=== PATIENT | female | born 1985 | race Caucasian/White ===

== ENCOUNTER → 2017-10-09 10:46 | Outpatient (CLI) | payer BC, SELFPAY ==
--- NOTE | 2017-10-09 11:04 | FL_ITS ---
EXAM: Barium swallow/esophagram. INDICATION: ITS.REASON: dysphagia ORDERING PHYSICIAN: Steven Smith MD PATIENT AGE: 32 years TECHNIQUE: In the upright position the patient was observed to swallow barium in both the AP and lateral view. The cervical esophagus was examined under fluoroscopy with images obtained. The patient was then placed prone in the right anterior oblique position and was observed to swallow barium with Valsalva technique . FLUOROSCOPY TIME: 61 seconds FINDINGS: There was no evidence of aspiration. There was normal peristalsis. No filling defects or mucosal abnormalities. No masses or strictures. IMPRESSION: Negative barium swallow.
== END ==
PROVIDERS: Visit Provider Surgery
DX: R13.10 Dysphagia, unspecified (principal)
CPT/HCPCS: 74220

== ENCOUNTER → 2017-11-14 13:09 | Outpatient (CLI) | payer BC, SELFPAY ==
--- NOTE | 2017-11-14 13:16 | NVE_ITS ---
Venous Exam Indications: 729.5 Pain in limb. IMPRESSIONS 1. There is no evidence of significant Reflux. 2. No evidence of deep or superficial vein thrombosis involving the right lower extremity Right lower extremity venous duplex evaluation. Doppler flow study including spectral analysis, color and summers scale imaging. Location: Vascular laboratory. Patient status: Outpatient. Tables: Venous flow and imaging: + +-------+ + Location Overall Flow properties + +-------+ + Right common femoral Patent Normal phasicity; spontaneous; normal augmentation; compressible + +-------+ + Right saphenofemoral junction Patent Compressible + +-------+ + Right profunda femoral Patent Compressible + +-------+ + Right femoral Patent Normal phasicity; spontaneous; normal augmentation; compressible + +-------+ + Right greater saphenous Patent Normal phasicity; spontaneous; normal augmentation; compressible + +-------+ + Right popliteal Patent Normal phasicity; spontaneous; normal augmentation; compressible + +-------+ + Right posterior tibial Patent Compressible + +-------+ + Right peroneal Patent Compressible + +-------+ + Right gastrocnemius Patent Compressible + +-------+ + Right soleal Patent Compressible + +-------+ + (Report amended ) Electronically signed by: Jarod Cid [id number]
== END ==
PROVIDERS: PCP Nurse Practitioner Family; Visit Provider Nurse Practitioner Family
DX: M79.671 Pain in right foot (principal)
CPT/HCPCS: 93971

== ENCOUNTER → 2017-11-20 09:37 | Outpatient (CLI) | payer BC, SELFPAY ==
[2017-11-20 14:23] LABS: Basophils # 0.1 K/mm3 (0-0.2); Basophils % 1.2 % (0.1-2.0); Eosinophils # 0.6 K/mm3 (0.0-0.4); Eosinophils % 6.6 % (0.1-12.0); Hematocrit 46.8 % (37.0-47.0); Hemoglobin 14.9 g/dL (12.2-16.2); Lymphocytes # 2.8 K/mm3 (0.7-4.5); Lymphocytes % 33.4 K/mm3 (10-50); Mean Corpuscular HGB Conc 31.8 g/dL (31.8-35.4); Mean Corpuscular Hemoglobin 30.5 pg (27.0-31.2); Mean Corpuscular Volume 96.1 fl (81-99); Mean Platelet Volume 8.9 fl (7.4-10.4); Monocytes # 0.4 K/mm3 (0.1-1.0); Monocytes % 4.5 % (1.7-9.3); Neutrophils # 4.5 K/mm3 (1.8-7.8); Neutrophils % 54.4 % (37.0-80.0); Platelet Count 292 K/mm3 (142-424); Red Blood Count 4.87 M/mm3 (4.20-5.40); Red Cell Distribution Width 12.1 % (11.5-17.5); White Blood Count 8.3 K/mm3 (4.8-10.8)
[2017-11-20 14:51] LABS: Alanine Aminotransferase 32 U/L (12-78); Albumin Level 3.9 gm/dL (3.4-5.0); Albumin/Globulin Ratio 1.4 (1.1-1.8); Alkaline Phosphatase 111 U/L (46-116); Anion Gap 12.4 mEq/L (5-15); Aspartate Amino Transferase 16 U/L (15-37); Bilirubin,Total 0.6 mg/dL (0.2-1.0); Blood Urea Nitrogen 8 mg/dL (7-18); Calcium 8.8 mg/dL (8.5-10.1); Carbon Dioxide 29 mmol/L (21.0-32.0); Chloride 105 mmol/L (98-107); Chol/HDL Ratio 2.2 (1-3.5); Cholesterol 132 mg/dL (140-200); Estimated Glomerular Filt Rate 97 ml/min (>60); GFR (African American) 117 ML/MIN (>60); Globulin 2.8 gm/dl (1.3-3.2); Glucose 79 mg/dL (74-106); HDL Cholesterol 60 mg/dL (29-89); LDL Cholesterol 62 mg/dL (0-130); Magnesium 1.7 mg/dL (1.4-2.2); Potassium 4.4 mmoL/L (3.5-5.1); Sodium 142 mmol/L (136-145); Thyroid Stimulating Hormone 0.88 uIU/ml (0.358-3.740); Total Protein,Serum 6.7 gm/dL (6.4-8.2); Triglycerides 49 mg/dL (30-200); VLDL Cholesterol 10 mg/dL (0-40)
[2017-11-20 14:58] LABS: Hemoglobin A1C 4.7 % (0.0-7.0)
== END ==
PROVIDERS: PCP Nurse Practitioner Family; Visit Provider Nurse Practitioner Family
DX: R10.31 Right lower quadrant pain (principal); Z79.899 Other long term (current) drug therapy; Z13.220 Encounter for screening for lipoid disorders
CPT/HCPCS: 36415; 80053; 80061; 83036; 83735; 84443; 85025

== ENCOUNTER → 2018-12-03 14:30 | Outpatient (CLI) | payer BC, SELFPAY ==
--- NOTE | 2018-12-03 14:35 | XR_ITS ---
XR knee RT 3V HISTORY: ITS.REASON: RT KNEE PAIN ORDERING PHYSICIAN: Taylor Webb APRN PATIENT AGE: 33 years COMPARISON: None FINDINGS: No fracture or dislocation. No lytic or blastic change. Normal mineralization. There is minimal osteoarthritic change of the medial compartment with slight decrease in the joint space and minimal osteophyte formation at the distal femur medially. IMPRESSION: Minimal osteoarthritis
== END ==
PROVIDERS: PCP Nurse Practitioner Family; Visit Provider Nurse Practitioner Family
DX: M25.561 Pain in right knee (principal)
CPT/HCPCS: 73562

== ENCOUNTER → 2019-04-12 17:05 | Outpatient (CLI) | payer BC, SELFPAY ==
[2019-04-12 17:31] LABS: Basophils # 0.1 K/mm3 (0-0.2); Eosinophils # 0.2 K/mm3 (0.0-0.4); Eosinophils % 2.3 % (0.1-12.0); Hemoglobin 15.5 g/dL (12.2-16.2); Lymphocytes % 41.4 % (10-50); Mean Corpuscular HGB Conc 33.7 g/dL (31.8-35.4); Mean Corpuscular Hemoglobin 31.9 pg (27.0-31.2); Mean Corpuscular Volume 94.6 fl (81-99); Mean Platelet Volume 9.6 fl (7.4-10.4); Monocytes # 0.5 K/mm3 (0.1-1.0); Monocytes % 5.1 % (1.7-9.3); Neutrophils # 4.9 K/mm3 (1.8-7.8); Neutrophils % 50.1 % (37.0-80.0); Platelet Count 351 K/mm3 (142-424); Red Blood Count 4.86 M/mm3 (4.20-5.40); White Blood Count 9.7 K/mm3 (4.8-10.8)
[2019-04-12 18:32] LABS: Alanine Aminotransferase 23 U/L (12-78); Albumin Level 4.4 gm/dL (3.4-5.0); Albumin/Globulin Ratio 1.5 (1.1-1.8); Alkaline Phosphatase 103 U/L (46-116); Anion Gap 11.8 mEq/L (5-15); Aspartate Amino Transferase 16 U/L (15-37); Bilirubin,Total 0.6 mg/dL (0.2-1.0); Blood Urea Nitrogen 12 mg/dL (7-18); Calcium 9.5 mg/dL (8.5-10.1); Carbon Dioxide 26 mmol/L (21.0-32.0); Chloride 101 mmol/L (98-107); Chol/HDL Ratio 2.5 (1-3.5); Cholesterol 175 mg/dL (140-200); Creatinine,Serum 0.59 mg/dL (0.55-1.02); Estimated Glomerular Filt Rate 117 ml/min (>60); Free T4 (Free Thyroxine) 0.96 ng/dl (0.76-1.46); GFR (African American) 141 ML/MIN (>60); Globulin 2.9 gm/dl (1.3-3.2); Glucose 88 mg/dL (74-106); HDL Cholesterol 71 mg/dL (29-89); LDL Cholesterol 91 mg/dL (0-130); Potassium 3.8 mmoL/L (3.5-5.1); Sodium 135 mmol/L (136-145); Thyroid Stimulating Hormone 1.11 uIU/ml (0.358-3.740); Total Protein,Serum 7.3 gm/dL (6.4-8.2); Triglycerides 66 mg/dL (30-200); VLDL Cholesterol 13 mg/dL (0-40)
[2019-04-12 18:38] LABS: C-Reactive Protein > 0.2 mg/dL (0.0-0.9)
[2019-04-12 18:56] LABS: Erythrocyte Sedimentation Rate 6 mm/hr (0-20)
[2019-04-14 15:09] LABS: Hep A Ab, IgM Negative (Negative); Hepatitis B Core Antibody IgM Negative (Negative); Hepatitis B Surface Antigen Negative (Negative)
[2019-04-14 21:50] LABS: Hepatitis C Antibody <0.1 s/co ratio (0.0-0.9); RA Latex Turbid. <10.0 IU/mL (0.0-13.9)
[2019-04-15 13:56] LABS: Vitamin D 25 Hydroxy 22.9 ng/mL (30.0-100.0)
[2019-04-16 14:59] LABS: Antinuclear Antibodies, IFA Positive (.)
== END ==
PROVIDERS: Visit Provider Nurse Practitioner Family
DX: I10 Essential (primary) hypertension (principal); R53.83 Other fatigue; Z29.9 Encounter for prophylactic measures, unspecified; M47.812 Spondylosis without myelopathy or radiculopathy, cervical region; M47.813 Spondylosis without myelopathy or radiculopathy, cervicothoracic region
CPT/HCPCS: 80053; 80061; 80074; 82652; 84439; 84443; 84550; 85025; 85651; 86038; 86140; 86431

== ENCOUNTER → 2019-06-07 08:54 | Outpatient (CLI) | payer BC, SELFPAY ==
--- NOTE | 2019-06-07 | CA_ITS ---
APPROVED REPORT Exam: Exercise Treadmill Technologist: Martha Welsh Ht: 5 ft 7 in Wt: 150 lbs BSA: 1.79 m2 HR: 72 bpm BP: 135/102 mmHg Medical History Medical History: HTN Medications: Propranolol,,,,, Losartan,,,,, ProMETHAZINE,,,,, CyclobenAPRINE,,,,, Omepazole,,,,, HTCZ,,,,, Cardiac Risk Factors: FHX of CAD, HTN Stress Test Details Test: Sylvester HR Resting HR: 66 bpm Max Heart Rate (APMHR): 186 bpm Max HR Achieved: 169 bpm Target HR (85% APMHR): 158 bpm % of APMHR: 90 Recovery HR: 93 bpm BP Resting BP: 135.0/102.0 mmHg Max BP: 163.0/90.0 mmHg Recovery BP: 142.0/93.0 mmHg ECG Resting ECG: NORMAL SINUS RHYTHM Recovery ST Deviation: 2 mm Clinical Reason for Termination: Dyspnea Exercise duration: 10:00 min Highest Stage Achieved: Exercise capacity: 12.8 METs Stress ECG Conclusion MAX HEART RATE 169 BPM. METS = 12.8. TEST STOPPED DUE TO SOA. NO CHEST PAIN. NO ARRHYTHMIAS. <1.5MM ST SEGMENT CHANGES. NORMAL TEST Test Summary REST . . . . . . . Standing REST . . . . . . . Sitting REST 04:29 0.0 0.0 66 . 135/102 . . Stage 1 01:00 10.0 1.7 108 . . . . Stage 1 02:00 10.0 1.7 109 . . . . Stage 1 03:00 10.0 1.7 109 . 146/109 . . Stage 2 01:00 12.0 2.5 116 . . . . Stage 2 02:00 12.0 2.5 122 . . . . Stage 2 03:00 12.0 2.5 120 . . . . Stage 3 01:00 14.0 3.4 140 . 152/109 . . Stage 3 02:00 14.0 3.4 145 . 152/109 . . Stage 3 03:00 14.0 3.4 150 . 154/109 . . Stage 4 01:00 16.0 4.2 167 . . . Stop exercise at 10:00 RECOVERY 01:00 0.0 0.0 140 . . . . RECOVERY 02:00 0.0 0.0 119 . . . . RECOVERY 03:00 0.0 0.0 75 . . . . RECOVERY 04:00 0.0 0.0 70 . . . . RECOVERY 05:00 0.0 0.0 84 . 163/ 90 . . RECOVERY 05:16 0.0 0.0 91 . 135/ 89 . . Electronically signed by : Kang Humphries, 06/07/2019 14:54:09
--- NOTE | 2019-06-07 08:54 | CA_ITS ---
APPROVED REPORT EXAM: Comprehensive 2D, Doppler, and color-flow Echocardiogram [employer] Teacher: Bhavana Acharya RDCS Ht: 5 ft 7 in Wt: 160lbs BSA: 1.84 BP: 160/111 mmHg Indications: Chest Pain, Shortness of Breath 2D Dimensions LVOT 2.02 cm (M/F) 1.5-2.5 M-Mode Dimensions RVDd 3.02 cm (0.9-2.6) LVDd 4.13 cm (3.5-5.7) LVDs 2.82 cm (3.5-5.7) IVSd 0.80 cm (0.6-1.1) PWd 0.87 cm (0.6-1.1) EF (Teich) 60.10% FS 31.70% EDV (Teich) 75.50 mL ESV (Teich) 30.10 mL Left Ventricle Left atrium is normal size, left ventricle is normal size, there is no concentric left ventricular hypertrophy, visually estimated ejection fraction 55% with no regional wall motion abnormality, diastolic parameters are within normal range Right Ventricle Right atrium right ventricular normal size and contractility. Aortic Valve Aortic valve is grossly normal, there is no aortic stenosis aortic insufficiency. Mitral Valve Mitral valve is grossly normal, there is mild mitral regurgitation. Tricuspid Valve Tricuspid valve is grossly normal, there is mild tricuspid regurgitation. Tricuspid regurgitation jet velocity is inadequate for calculation of the right ventricular systolic pressure. Pulmonic Valve Pulmonic valve is poorly visualized. Great Vessels Aortic root is normal size. Pericardium No significant pericardial effusion noted. Conclusion 1. Normal left ventricular size, preserved left ventricular systolic function, visually estimated ejection fraction 55% with no regional wall motion abnormality, diastolic parameters are within normal range. 2. Mild mitral and tricuspid regurgitation. 3. No significant pericardial effusion noted. Electronically signed by : Kang Humphries, 06/07/2019 13:56:12
== END ==
PROVIDERS: PCP Nurse Practitioner Family; Visit Provider Nurse Practitioner Family
DX: I10 Essential (primary) hypertension (principal); R06.00 Dyspnea, unspecified; R07.9 Chest pain, unspecified
CPT/HCPCS: 93017; 93306

== ENCOUNTER → 2019-06-12 13:22 | Outpatient (CLI) | payer BC, SELFPAY ==
--- NOTE | 2019-06-12 13:22 | MR_ITS ---
PROCEDURE: MR CERVICAL SPINE WO CON CLINICAL INDICATION: neck pain Neck pain COMPARISON: No exams were available for comparison TECHNIQUE: Standard multiplanar multiecho sequences are performed without contrast. 3-D MIP and myelographic images are also rendered and reviewed FINDINGS: There is normal alignment. The cranial cervical junction has an unremarkable appearance. C2-C3: Unremarkable. C3-C4: Very minimal central disc protrusion without impingement. C4-C5: Mild degenerative disc disease with minimal bulging disc with mild bilateral foraminal narrowing from uncovertebral hypertrophy. C5-C6: There is a small broad-based left paracentral disc protrusion. This is causing moderate left lateral recess and foraminal narrowing in is causing flattening of the anterior left aspect of the cord. C6-C7: Degenerative disc disease with bulging disc with a small left paracentral extruded disc. There is canal stenosis 8 mm and there is impingement upon the left anterior and lateral aspect of the cord with left lateral recess and foraminal narrowing. Right lateral recess narrowing is also present at this level from minimal right paracentral disc protrusion. The the C7-T1: Unremarkable. T1-T2: Mild degenerative disc disease. There is a small central disc protrusion also present at T3-T4 noted on the edge of the sagittal images. Consider dedicated MRI of the thoracic spine for better delineation. This does appear to be causing some flattening of the cord anteriorly. IMPRESSION: 1. C3-C4: Very minimal central disc protrusion without impingement. 2. C4-C5: Mild degenerative disc disease with minimal bulging disc with mild bilateral foraminal narrowing from uncovertebral hypertrophy. 3. C5-C6: There is a small broad-based left paracentral disc protrusion. This is causing moderate left lateral recess and foraminal narrowing in is causing flattening of the anterior left aspect of the cord. 4. C6-C7: Degenerative disc disease with bulging disc with a small left paracentral extruded disc. There is canal stenosis 8 mm and there is impingement upon the left anterior and lateral aspect of the cord with left lateral recess and foraminal narrowing. Right lateral recess narrowing is also present at this level from minimal right paracentral disc protrusion. 5. There is a small central disc protrusion also present at T3-T4 noted on the edge of the sagittal images. Consider dedicated MRI of the thoracic spine for better delineation. This does appear to be causing some flattening of the cord anteriorly. Dictated by: Jarod Cid MD 06/13/2019 13:34 Electronically signed by Jarod Cid MD in [place] 06/13/2019 13:34
--- NOTE | 2019-06-12 14:25 | US_ITS ---
PROCEDURE: US THYROID CLINICAL INDICATION: enlarged thyroid COMPARISON: No exams were available for comparison FINDINGS: Right lobe: 4.2 x 1.3 x 1.6 cm Left lobe: 4.1 x 1.5 x 1.7 cm Isthmus: Unremarkable Additional findings: Homogeneous echogenicity. No discrete nodule IMPRESSION: Mildly prominent thyroid gland without evidence of nodule Dictated by: Jarod Cid MD 06/13/2019 09:48 Electronically signed by Jarod Cid MD in [place] 06/13/2019 09:48
== END ==
PROVIDERS: PCP Nurse Practitioner Family; Visit Provider Nurse Practitioner Family
DX: M47.812 Spondylosis without myelopathy or radiculopathy, cervical region (principal); R13.10 Dysphagia, unspecified
CPT/HCPCS: 72141; 76376; 76536

== ENCOUNTER → 2019-06-19 14:15 | Outpatient (CLI) | payer BC, SELFPAY ==
[2019-06-19 15:34] LABS: Amphetamine/Metha Screen,Urine Negative ng/mL (<1000); Barbiturates Screen,Urine Negative ng/mL (<200); Benzodiazepines Screen,Urine Negative ng/mL (<200); Cannabinoid Screen,Urine Positive ng/mL (<50); Cocaine Screen,Urine Negative ng/mL (<300); Methadone Screen,Urine Negative ng/mL (<300); Opiate Screen,Urine Negative ng/mL (<300); Phencyclidine Screen,Urine Negative ng/mL (<25)
== END ==
PROVIDERS: Visit Provider Nurse Practitioner Family
DX: M54.9 Dorsalgia, unspecified (principal)
CPT/HCPCS: 80305

== ENCOUNTER → 2019-06-21 09:24 | Outpatient (CLI) | payer BC, SELFPAY ==
[2019-06-21 09:49] LABS: Anion Gap 10.8 mEq/L (5-15); Blood Urea Nitrogen 12 mg/dL (7-18); Calcium 8.8 mg/dL (8.5-10.1); Carbon Dioxide 30 mmol/L (21.0-32.0); Chloride 103 mmol/L (98-107); Creatinine,Serum 0.74 mg/dL (0.55-1.02); Estimated Glomerular Filt Rate 90 ml/min (>60); GFR (African American) 109 ML/MIN (>60); Glucose 86 mg/dL (74-106); Potassium 3.8 mmoL/L (3.5-5.1); Sodium 140 mmol/L (136-145)
== END ==
PROVIDERS: Visit Provider Internal Medicine Cardiovascular Disease
DX: R07.9 Chest pain, unspecified (principal); R06.00 Dyspnea, unspecified; I10 Essential (primary) hypertension
CPT/HCPCS: 36415; 80048

== ENCOUNTER → 2019-07-01 15:15 | Outpatient (CLI) | payer BC, SELFPAY ==
[2019-07-01 17:39] LABS: Calcium 9.3 mg/dL (8.5-10.1); Free T4 (Free Thyroxine) 0.95 ng/dl (0.76-1.46); Thyroid Stimulating Hormone 1.43 uIU/ml (0.358-3.740)
[2019-07-03 11:58] LABS: Thyroid Peroxidase Antibodies 25 IU/mL (0-34)
[2019-07-05 16:56] LABS: Calcitonin <2.0 pg/mL (0.0-5.0); Thyroid Stimulating Immunoglob <0.10 IU/L (0.00-0.55)
== END ==
PROVIDERS: Visit Provider Otolaryngology
DX: E06.9 Thyroiditis, unspecified (principal)
CPT/HCPCS: 36415; 82308; 82310; 84439; 84443; 84445; 86376

== ENCOUNTER → 2019-07-18 13:24 | Outpatient (POV) | payer BC, SELFPAY | PROVIDERS: PCP Nurse Practitioner Family; Visit Provider Neurological Surgery | DX: Z00.00 Encounter for general adult medical examination without abnormal findings (principal) ==

== ENCOUNTER → 2019-10-21 10:34 | Outpatient (CLI) | payer BC, SELFPAY ==
[2019-10-21 11:02] LABS: Basophils # 0.2 K/mm3 (0-0.2); Basophils % 1.6 % (0.1-2.0); Eosinophils # 0.6 K/mm3 (0.0-0.4); Eosinophils % 4.5 % (0.1-12.0); Hematocrit 44.1 % (37.0-47.0); Hemoglobin 15.1 g/dL (12.2-16.2); Lymphocytes # 4.8 K/mm3 (0.7-4.5); Lymphocytes % 35.7 % (10-50); Mean Corpuscular HGB Conc 34.3 g/dL (31.8-35.4); Mean Corpuscular Hemoglobin 33.7 pg (27.0-31.2); Mean Corpuscular Volume 98.3 fl (81-99); Mean Platelet Volume 8.1 fl (7.4-10.4); Monocytes # 0.8 K/mm3 (0.1-1.0); Monocytes % 6.1 % (1.7-9.3); Neutrophils % 52.1 % (37.0-80.0); Platelet Count 285 K/mm3 (142-424); Red Blood Count 4.49 M/mm3 (4.20-5.40); White Blood Count 13.3 K/mm3 (4.8-10.8)
[2019-10-21 11:10] LABS: Urine Pregnancy, HCG Qual. Negative (Negative)
[2019-10-21 13:14] LABS: Chloride 100 mmol/L (98-107); Potassium 4.2 mmoL/L (3.5-5.1); Sodium 134 mmol/L (136-145)
[2019-10-21 13:17] LABS: Blood Urea Nitrogen 11 mg/dl (7-17); Estimated Glomerular Filt Rate 114 ml/min (>60); GFR (African American) 138 ML/MIN (>60)
[2019-10-21 13:18] LABS: Anion Gap 9.2 mEq/L (5-15); Carbon Dioxide 29 mmol/L (22.0-30.0)
[2019-10-21 13:24] LABS: Calcium 9.7 mg/dl (8.4-10.2)
[2019-10-21 13:47] LABS: Glucose 81 mg/dl (74-100)
[2019-10-21 14:12] LABS: Coronavirus 19 IgG Antibody Negative (Negative); Coronavirus 19 IgM Antibody Negative (Negative)
== END ==
PROVIDERS: Visit Provider Otolaryngology
DX: Z01.818 Encounter for other preprocedural examination (principal); J39.2 Other diseases of pharynx
CPT/HCPCS: 36415; 80048; 81025; 85025; 86328

== ENCOUNTER 2019-10-22 07:36 | Day surgery (SDC) | payer BC, SELFPAY ==
--- NOTE | 2019-10-17 15:16 | SUR.PREOP ---
10/17/2019 @ 1518--PHONE CALL MADE TO PATIENT. PATIENT UNDERSTANDS THAT LAB WORK AND COVID TESTING NEEDS TO BE COMPLETED BEFORE 10 AM. PATIENT UNDERSTANDS IF LAB WORK AND COVID-19 TESTS ARE NOT COMPLETED BY 12PM ON THAT DATE, THE SURGERY SCHEDULED WILL BE CANCELLED AND RESCHEDULED FOR ANOTHER TIME.
[2019-10-22] VITALS (12 sets, daily range): BP systolic 91–120; BP diastolic 59–77; PULSE 54–76; RESP 12–19; TEMP 36.2–36.7; O2SAT 97–99; BMI 24.9
--- NOTE | 2019-10-22 07:55 | ECG_ITS ---
APPROVED REPORT Exam: Resting ECG HR:48 bpm ECG Measurements Heart Rate 48 AXES TX 142 P 41 QRSd 84 QRS 73 QT 470 T 51 QTc 419 <Conclusion> Marked sinus bradycardia Abnormal ECG Electronically signed by : Stewart Moise, 10/22/2019 16:24:47
--- NOTE | 2019-10-22 09:09 | P.PN_ITS ---
[facility] [place] Anesthesia Checklist - Patient Identification Patient Identification: Arm Band, Verbal (Name & ) - Structural Data Admitted From: Home Planned Operative Procedure/s: laryngoscopy Consent for Planned Operative Procedure(s) Verified: Yes Verified Documents: History and Physical - NPO Status Verified Time NPO: 00:00 - Additional verifications Patient : No Anesthesia Reactions: No Hx Blood Transfusions: No Blood Transfusion Reaction: No Cephalosporin Allergy: No Previous Colonoscopy: No - Cardiovascular Assessment Heart Sounds: S1 & S2 Pulse Strength: Baseline Pulse Rhythm: Regular Peripheral Edema: No - Airway Assessment C-Spine Mobility Assessed: Yes TMJ Mobility Assessed: Yes Dentition: Good Dentition - Neurological Assessment Level of Consciousness: Awake, Alert, Appropriate Hx Seizures: No Numbness or tingling in extremities: No - Anesthesia Plan Anesthesia Risk discussed: Yes Anesthesia Plan: Verified ASA Class: II Anesthesia Type: General [facility] [place] History I have reviewed the patient's past medical history: Yes Medical History: Reports:: Gastroesophageal Reflux Disease(GERD), Hypertension Denies:: Cancer, Diabetes Mellitus Type 1, Diabetes Mellitus Type 2, Internal Pacemaker, MRSA, Seizures *Have you ever received a pneumonia vaccine?: No *Have you received a flu vaccine this season?: No Other Medical History: Denies: Blood Transfusion Reaction Anesthesia experience/problems:: none Laterality Cases: Bilateral: Tonsillectomy Other Surgeries: Yes: Sinus Surgery, Other. No: Pacemaker Amputation: No Fractures: No - *Social History Smoking Status: Current every day smoker Tobacco Type: cigarettes # Packs/Day (cigarettes): 1 Alcohol Intake: never Alcohol Intake Frequency:: holidays/special occasions only Substance Use Type: marijuana *Occupational Status:: employed Housing: house Household Members: family *Travel in the last 8 weeks: None Family Hx:: Diabetes, Heart Attack, Cancer, Other
--- NOTE | 2019-10-22 09:54 | P.PN_ITS ---
[facility] Anesthesia Record Part I Intake, IV Amount: 900 Estimated blood loss (mL): 0 Urine output (mL): 0 Blood Pressure: 115/71 SaO2: 98 Pulse Rate: 75 Respiratory Rate: 12 Temperature: 98 F Patient is:: Awake, Stable Stable to PACU at:: 09:50
--- NOTE | 2019-10-23 08:56 | HMH.ANESII ---
[facility] Anesthesia Record Part II Discharge Time: 10:20 Destination: [facility] PACU nurse assessment reviewed?: Yes Patient Condition:: Good Anesthesia Complications:: None Swallowing reflex intact?: Yes Cyanosis?: No Blood Pressure: 111/77 Pulse Rate: 54 Temperature: 97.6 F Mental Status: Alert & Oriented Pain level:: 4 Nausea and/or vomitting:: None Intake, IV Amount: 800
[2019-10-23 08:57] VITALS: BP 111/77; PULSE 54; TEMP 36.4
--- NOTE | 2019-10-24 09:12 | P.OP_ITS ---
Date of procedure: 10/22/19 Pre-op Diagnosis:: 1. Persistent left-sided throat pain 2. Polypoid cystic lesion left vallecula Post-op Diagnosis:: same Procedure performed:: 1. Microlaryngoscopy with biopsy 2. Removal of lump to left vallecula Surgeon:: Sergei Clarke MD PLANT ENGINEERING SUPERVISOR:: Ovi Yin Anesthesia: GETA Estimated blood loss (mL): 1 Operative findings:: same Operative note:: With the patient under general anesthesia, using the SlimLine laryngoscope and the telescope, a microlaryngoscopy was done. The vocal cords were normal. As was the subglottic larynx. The supraglottic larynx had a polypoid cystic lesion in the left vallecula. Using the cup forceps the lesion was removed and submitted. Bleeding was less than 1 cc and stopped with topical epinephrine/cottonoids. The patient tolerated the procedure well and was sent to recovery in good general condition. Condition: stable Disposition: PACU Complications:: none
== END 2019-10-22 11:19 | disposition home or self-care (01) ==
LOC: OR 07:42
PROVIDERS: PCP Nurse Practitioner Family; Visit Provider Otolaryngology
PROC: 0CBS8ZX Excision of Larynx, Via Natural or Artificial Opening Endoscopic, Diagnostic (ICD-10-PCS; CPT 31536; principal; 2019-10-22 09:00)
DX: J38.7 Other diseases of larynx (principal); I10 Essential (primary) hypertension; K21.9 Gastro-esophageal reflux disease without esophagitis; Z72.0 Tobacco use; F12.90 Cannabis use, unspecified, uncomplicated; Z83.3 Family history of diabetes mellitus; Z82.49 Family history of ischemic heart disease and other diseases of the circulatory system; Z84.89 Family history of other specified conditions; Z80.9 Family history of malignant neoplasm, unspecified
CPT/HCPCS: 31536; 93005; 96374; 96375; J2405; J2710

== ENCOUNTER → 2019-10-31 13:03 | Outpatient (CLI) | payer BC, SELFPAY ==
[2019-10-31 13:07] LABS: MANUAL DIFFERENTIAL MANUAL DIFFERENTIAL (MANUAL DIFF)
[2019-10-31 13:21] LABS: Basophils # 0.1 K/mm3 (0-0.2); Basophils % 0.9 % (0.1-2.0); Eosinophils # 0.4 K/mm3 (0.0-0.4); Eosinophils % 3.6 % (0.1-12.0); Hematocrit 42.2 % (37.0-47.0); Hemoglobin 14.1 g/dL (12.2-16.2); Lymphocytes # 4.4 K/mm3 (0.7-4.5); Lymphocytes % 37.8 % (10-50); Mean Corpuscular HGB Conc 33.4 g/dL (31.8-35.4); Mean Corpuscular Hemoglobin 33.3 pg (27.0-31.2); Mean Platelet Volume 7.8 fl (7.4-10.4); Monocytes # 0.8 K/mm3 (0.1-1.0); Neutrophils # 5.9 K/mm3 (1.8-7.8); Neutrophils % 50.8 % (37.0-80.0); Platelet Count 291 K/mm3 (142-424); Red Blood Count 4.23 M/mm3 (4.20-5.40); Red Cell Distribution Width 13.5 % (11.5-17.5); White Blood Count 11.5 K/mm3 (4.8-10.8)
[2019-10-31 14:21] LABS: Erythrocyte Sedimentation Rate 7 mm/hr (0-20)
[2019-10-31 15:47] LABS: Alanine Aminotransferase 44 U/L (12-78); Albumin Level 4.1 g/dl (3.5-5.0); Albumin/Globulin Ratio 1.8 (1.1-1.8); Alkaline Phosphatase 78 U/L (38-126); Anion Gap 7.4 mEq/L (5-15); Aspartate Amino Transferase 35 U/L (14-36); Bilirubin,Total 0.2 mg/dl (0.2-1.3); Blood Urea Nitrogen 12 mg/dl (7-17); Carbon Dioxide 28 mmol/L (22.0-30.0); Chloride 103 mmol/L (98-107); Estimated Glomerular Filt Rate 96 ml/min (>60); GFR (African American) 116 ML/MIN (>60); Globulin 2.3 g/dL (1.3-3.2); Glucose 88 mg/dl (74-100); Potassium 4.4 mmoL/L (3.5-5.1); Sodium 134 mmol/L (136-145); Total Protein,Serum 6.4 g/dl (6.3-8.2)
[2019-10-31 15:51] LABS: Anisocytosis 1+; Eosinophils % 2 % (0-3); Lymphocytes % 37 % (10-50); Macrocytosis 1+; Monocytes % 6 % (2-9); Neutrophils % 52 % (42-76); Platelet Estimate Normal; Total Cells Counted 100
== END ==
PROVIDERS: Visit Provider Otolaryngology
DX: J39.2 Other diseases of pharynx (principal)
CPT/HCPCS: 36415; 80053; 85007; 85014; 85018; 85048; 85049; 85651

== ENCOUNTER → 2019-12-27 17:08 | Outpatient (CLI) | payer BC, SELFPAY ==
[2019-12-27 17:27] LABS: Basophils # 0.1 K/mm3 (0-0.2); Eosinophils # 0.5 K/mm3 (0.0-0.4); Eosinophils % 4.7 % (0.1-12.0); Hematocrit 47.3 % (37.0-47.0); Hemoglobin 16.2 g/dL (12.2-16.2); Lymphocytes # 3.4 K/mm3 (0.7-4.5); Lymphocytes % 35.3 % (10-50); Mean Corpuscular HGB Conc 34.3 g/dL (31.8-35.4); Mean Corpuscular Hemoglobin 33.8 pg (27.0-31.2); Mean Corpuscular Volume 98.6 fl (81-99); Mean Platelet Volume 9.3 fl (7.4-10.4); Monocytes # 0.6 K/mm3 (0.1-1.0); Monocytes % 5.9 % (1.7-9.3); Neutrophils # 5.1 K/mm3 (1.8-7.8); Neutrophils % 53.1 % (37.0-80.0); Platelet Count 278 K/mm3 (142-424); Red Cell Distribution Width 12.4 % (11.5-17.5); White Blood Count 9.6 K/mm3 (4.8-10.8)
[2019-12-27 17:44] LABS: Chloride 100 mmol/L (98-107); Potassium 3.9 mmoL/L (3.5-5.1); Sodium 138 mmol/L (136-145)
[2019-12-27 17:47] LABS: Alanine Aminotransferase 32 U/L (12-78); Albumin Level 4.6 g/dl (3.5-5.0); Albumin/Globulin Ratio 1.9 (1.1-1.8); Alkaline Phosphatase 91 U/L (38-126); Anion Gap 13.9 mEq/L (5-15); Aspartate Amino Transferase 27 U/L (14-36); Bilirubin,Total 0.7 mg/dl (0.2-1.3); Blood Urea Nitrogen 9 mg/dl (7-17); Carbon Dioxide 28 mmol/L (22.0-30.0); Cholesterol 183 mg/dl (140-200); Estimated Glomerular Filt Rate 96 ml/min (>60); GFR (African American) 116 ML/MIN (>60); Globulin 2.4 g/dL (1.3-3.2); Triglycerides 341 mg/dl (30-150); VLDL Cholesterol 68 mg/dL (0-40)
[2019-12-27 17:48] LABS: Calcium 10.1 mg/dl (8.4-10.2); Chol/HDL Ratio 3.3 (1-3.5); Glucose 85 mg/dl (74-100); HDL Cholesterol 56 mg/dl (40-60)
[2019-12-27 17:58] LABS: Direct LDL Cholesterol 99.19 mg/dL (100-129)
[2019-12-27 18:05] LABS: T4 (Thyroxine) 8.1 ug/dl (5.53-11.0)
[2019-12-27 18:18] LABS: Thyroid Stimulating Hormone 1.84 uIU/mL (0.465-4.68)
[2019-12-27 18:54] LABS: 25-OH Vitamin D, Total 24.6 ng/mL (30-100)
== END ==
PROVIDERS: Visit Provider Nurse Practitioner Family
DX: I10 Essential (primary) hypertension (principal); R53.83 Other fatigue; E55.9 Vitamin D deficiency, unspecified
CPT/HCPCS: 80053; 80061; 82306; 84436; 84443; 85025

== ENCOUNTER → 2020-01-03 16:39 | Outpatient (CLI) | payer BC, SELFPAY ==
[2020-01-03 19:40] LABS: Hemoglobin A1C 5.1 % (4.0-6.0)
== END ==
PROVIDERS: Visit Provider Family Medicine
DX: R73.9 Hyperglycemia, unspecified (principal)
CPT/HCPCS: 83036

== ENCOUNTER → 2020-01-22 08:42 | Outpatient (CLI) | payer BC, SELFPAY ==
[2020-01-22 09:11] LABS: Chloride 104 mmol/L (98-107); Sodium 139 mmol/L (136-145)
[2020-01-22 09:12] LABS: Potassium 4.5 mmoL/L (3.5-5.1)
[2020-01-22 09:14] LABS: Anion Gap 11.5 mEq/L (5-15); Blood Urea Nitrogen 10 mg/dl (7-17); Carbon Dioxide 28 mmol/L (22.0-30.0); Estimated Glomerular Filt Rate 114 ml/min (>60); GFR (African American) 138 ML/MIN (>60)
[2020-01-22 09:15] LABS: Calcium 9.7 mg/dl (8.4-10.2); Glucose 81 mg/dl (74-100)
--- NOTE | 2020-01-22 09:15 | CT_ITS ---
PROCEDURE: CT SOFT TISSUE NECK W CON CLINICAL HISTORY: neck/throat pain NECK NA THROAT PAIN, HX OF EPIGLOTTIS POLYPS WITH 3 LARYNGOSCOPES MOST RECENT JULY2019,C/O SORE THROAT ON LEFT SINCE, COMPARISON: No exams were available for comparison TECHNIQUE: Oral Contrast: None IV Contrast: 75 mL Optiray 350 Axial images obtained with sagittal and coronal reformats. All CT scans at the facility use one or more dose reduction, viz: automated exposure control, ma/kV adjustment per patient size (including targeted exams where dose is matched to indication, i.e. head), or iterative reconstruction technique. FINDINGS: The nasopharynx has an unremarkable appearance. There is some mucosal thickening noted on the left posteriorly in the oral pharyngeal region the. This area measures approximately 5 mm. Direct visualization is suggested. No para tonsillar abscess. The epiglottis and glottic region and subglottic area are unremarkable. No obvious thyroid nodule. There are few scattered small lymph nodes in the neck but no dominant adenopathy. The patient has a tongue piercing. Lung apices are clear. There is mild degenerative disc disease at C6-C7 IMPRESSION: 1. There is a small area of focal mucosal thickening involving the left posterior oral pharynx region measuring approximately 5 mm. This could be due to an area of lymphoid hyperplasia. This is just lateral to and slightly inferior to the level of the uvula. Recommend direct visualization as a mucosal lesion is not excluded. 2. Otherwise negative Dictated by: Jarod Cid MD 01/23/2020 08:04 Jarod Cid MD in [place] 01/23/2020 08:04
== END ==
PROVIDERS: Visit Provider Internal Medicine Cardiovascular Disease
DX: R59.0 Localized enlarged lymph nodes (principal); R07.9 Chest pain, unspecified; R06.00 Dyspnea, unspecified; I10 Essential (primary) hypertension; I34.0 Nonrheumatic mitral (valve) insufficiency
CPT/HCPCS: 36415; 70491; 80048; Q9967

== ENCOUNTER → 2020-02-29 10:40 | Outpatient (CLI) | payer BC, SELFPAY ==
--- NOTE | 2020-02-29 10:41 | MR_ITS ---
PROCEDURE: MR THORACIC SPINE WO CON CLINICAL INDICATION: back pain PT STATES HX OF DDD DIAGNOSED ON C-SPINE MRI DONE 06/12/19 HERE. WITH THIS EXAM RECOMMENDED. PT C/O MID BACK PAIN WITH NO TRAUMA OR INJURY. COMPARISON: MR MR CERVICAL SPINE WO CON from 06/12/2019 TECHNIQUE: Routine multiplanar multi echo sequences are performed without gadolinium enhancement. FINDINGS: There is normal alignment. No fracture or dislocation. No bony destructive process. There is mild degenerative disc disease with some decrease in the disc space at T1 to T8. There is also degenerative disc disease at T11-T12. There was a question of a T3-T4 disc herniation on the C-spine images. This however was on the edge of the exam. There is mild degenerative disc disease at this level but no evidence of disc herniation. There is a tiny left paracentral disc protrusion at T4-T5 without impingement. There is degenerative disc disease at T11-T12 with mild bulging disc and a small left paracentral disc herniation without mass effect. There is endplate irregularity at this level Once again noted is a bulging disc with small left paracentral disc protrusion at C6-C7 IMPRESSION: 1. Mild thoracic spondylosis. 2. Degenerative disc disease at T11-T12 with endplate irregularity. There is a small left paracentral disc herniation without mass effect. 3. Bulging disc with small left paracentral disc protrusion at C6-C7 Dictated by: Jarod Cid MD 03/01/2020 10:25 Jarod Cid MD in [place] 03/01/2020 10:25
== END ==
PROVIDERS: PCP Nurse Practitioner Family; Visit Provider Emergency Medicine
DX: M51.36 Other intervertebral disc degeneration, lumbar region (principal)
CPT/HCPCS: 72146

== ENCOUNTER → 2020-07-30 10:14 | Outpatient (POV) | payer BC, SELFPAY ==
[2020-07-30 10:39] VITALS: BP 139/85; PULSE 70; RESP 18; O2SAT 99; BMI 25.0
--- NOTE | 2020-07-30 12:53 | HMH.PMCON ---
Assessment and Plan (1) Degenerative joint disease of cervical spine Status: Chronic Category: Medical Code(s): M47.812 - Spondylosis without myelopathy or radiculopathy, cervical region (2) Cervical radiculopathy Status: Chronic Category: Medical Code(s): M54.12 - Radiculopathy, cervical region - Assessment and plan all Dx Assessment and Plan for all problems:: We will schedule the patient for a cervical epidural steroid injection at C5-C6. She is not on anticoagulation therapy. She and I did discuss possible intrathecal therapy for her chronic cervical spine pain. She is interested. She is willing to undergo injections to see if they are beneficial. If she does not get relief, she does understand we can proceed with possible trial of intrathecal therapy. She also understands she would need to undergo a psychological evaluation. Patient I discussed with her marijuana use she would possibly be a candidate for bupivacaine therapy. Risks and benefits of the injection were explained to the patient in detail and she would like to proceed with the injection. We will see her back after her injection to discuss a further plan of care and reevaluate her symptoms. The patient and I specifically discussed risk factors for COVID19. These risks include, but are not limited to age greater than 60, heart or lung disease, diabetes, immunosuppression, and travel. We also discussed NSAIDs may worsen COVID19 infection or symptoms. Patient should not use NSAIDs to treat COVID19 signs or symptoms. Patient was also informed that any type of corticosteroid of any form (oral or injection) will decrease the patient's immune system response and may increase the likelihood of COVID19 infection [address] symptoms[address]. Blackburn has reviewed this note and agrees with this plan of care. This note was dictated using voice recognition software and make contain errors or omissions. HPI - Data of Consult Patient: new to practice Consult date: 07/30/20 Requesting Physician: Anna Dooley APRN Primary Care Provider: Karla Karimi APRN - Consult Narrative Reason for consult: Neck pain History of present illness: Ms. Dawson is a 35 year old female who presents today for chronic neck pain. Patient did have an ACDF 03/18/2020. Patient says that she has numbness and tingling as well as pain into her left arm and first 3 fingers. She is also having pain in her mid back. Her neck pain radiates into her occipital area and causes her to have frequent headaches. She says that she did have her surgery performed by Dr. Sosa. Following the surgery her pain worsened. She went back to Dr. Sosa, informing him that he did something very wrong . Patient says that Dr. Sosa informed her her pain was not related to the surgery. She says that when she lays flat she has worsening pain that creeps up into her neck. She says that she cries nightly before bed because she knows she is going to have severe pain. She says looking to the left causes her pain to get worse. Patient says that she initially had a surgery for mid scapular pain. She says since the surgery her pain has gotten significantly worse. She does say she is not interested in injective therapy. She is positive for marijuana use. She says that she does not take any other medications. She is interested in implanted devices. She rates her pain a 9 out of 10 today. She has tried and failed physical therapy along with a continued home stretching program and anti-inflammatories. CC: Anna Dooley APRN [facility] History I have reviewed the patient's past medical history: Yes Medical History: Reports:: Gastroesophageal Reflux Disease(GERD), Hypertension Denies:: Cancer, Diabetes Mellitus Type 1, Diabetes Mellitus Type 2, Internal Pacemaker, MRSA, Seizures *Have you ever received a pneumonia vaccine?: Yes *Have you received a flu vaccine this season?: Yes Other Medical History: Reports: Arthritis, Thyr
== END ==
PROVIDERS: PCP Nurse Practitioner Family; Visit Provider Clinical Nurse Specialist Family Health
DX: M47.892 Other spondylosis, cervical region (principal); M54.12 Radiculopathy, cervical region
CPT/HCPCS: 99202; G0463

== ENCOUNTER → 2020-09-24 10:12 | Outpatient (CLI) | payer BC, SELFPAY ==
--- NOTE | 2020-09-24 10:12 | CT_ITS ---
PROCEDURE: CT SOFT TISSUE NECK WO/W CON CLINICAL HISTORY: throat pain Chronic sore throat for years Hoarse feeling Hx of throat surgery X4 for polyps on lt side epiglottis COMPARISON: CT CT SOFT TISSUE NECK W CON from 01/22/2020 TECHNIQUE: Oral Contrast: None IV Contrast: 75 mL Isovue 370 Axial images obtained with sagittal and coronal reformats. All CT scans at the facility use one or more dose reduction, viz: automated exposure control, ma/kV adjustment per patient size (including targeted exams where dose is matched to indication, i.e. head), or iterative reconstruction technique. FINDINGS: Images of the mid and lower head demonstrates a developmental venous anomaly of the left cerebellum with caput medusa sign in the left cerebellum centrally with a draining vein directed toward the petrous area of the dural sinus. This is not significantly changed. The nasopharynx has an unremarkable appearance. There is some mild fullness in the right parapharyngeal region at the level of the uvula and also some minimal nodularity once again noted along the posterior oropharynx on the left. This region however is not distended as before. Direct visualization may provide further evaluation as previously mentioned. The epiglottis and glottic region have an unremarkable appearance. There are few scattered small cervical lymph nodes a small right submandibular node measures 14 by 8 mm previously 9 by 6 mm. The thyroid gland has an unremarkable appearance. No acute finding in the lung apices. Postsurgical changes with metallic artifact at C6-C7. IMPRESSION: 1. 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 MRI of the brain without and with contrast may further characterize and evaluate for possible additional abnormalities. 2. Mild fullness in the right parapharyngeal region and left posterior oropharynx which may only be related to nondistention. Direct visualization may confirm and to exclude mucosal lesions. 3. Scattered small cervical lymph nodes. A right submandibular node is slightly larger. 4. No abscess or other significant anomaly. Dictated by: Jarod Cid MD 09/25/2020 07:27 Jarod Cid MD in [place] 09/25/2020 07:27
== END ==
PROVIDERS: PCP Nurse Practitioner Family; Visit Provider Otolaryngology
DX: R07.0 Pain in throat (principal)
CPT/HCPCS: 70492; Q9967

== ENCOUNTER 2020-10-22 12:01 | Emergency (ER) | payer BC, SELFPAY ==
[2020-10-22 12:03] VITALS: BP 129/70; PULSE 60; RESP 16; TEMP 36.9; O2SAT 100; BMI 25.0
--- NOTE | 2020-10-22 12:17 | HMH.EDUTC ---
[facility] [place] Clinical Impression: Sinusitis Qualifiers: Sinusitis location: unspecified location Chronicity: acute Recurrence: non-recurrent Qualified Code(s): J01.90 - Acute sinusitis, unspecified Disposition: Home, Self-Care Condition on Discharge: Good Instructions: DI for Sinusitis Additional Instructions: Drink plenty of fluids. Take tylenol or ibuprofen for pain or fever. Take the medications as directed. Follow up with your regular doctor. GO TO THE ER FOR ANY WORSENING SYMPTOMS Don't start the oral steroids (prednisone) until tomorrow, since you had the shot here today. The cough medication (promethazine dm) will make you drowsy, so don't drive or operate heavy machinery after taking it. Prescriptions: Promethazine/Dextromethorphan [Promethazine-Dm Syrup] 5 ml PO Q6HP PRN #240 syrup PRN Reason: Cough Transmission Status: Pending to [facility] predniSONE [Deltasone 10mg tablet] 10 mg PO BID 4 Days #8 tab Transmission Status: Pending to [facility] Azithromycin [Z-Willie 250mg Tab*] 250 mg PO UD DOSE PK #6 tab Transmission Status: Pending to [facility] Referrals: Karla Karimi APRN [Primary Care Provider] - Time of Disposition: 12:33 Medical Decision Making - Medical Records Medical records reviewed: No: I reviewed the patient's medical records. - Dewey Inquiry Pt receiving controlled substance: No Vital Signs: 10/22/20 12:03 10/22/20 12:34 Temperature 98.4 F 98.4 F Temperature Source Oral Pulse Rate 63 Pulse Rate [Right] 60 Respiratory Rate 16 16 Blood Pressure 122/74 Blood Pressure [Right Arm] 129/70 Blood Pressure Mean [Right Arm] 89 Blood Pressure Source [Right Arm] Automatic Cuff Blood Pressure Position [Right Arm] Sitting 02 Sat by Pulse Oximetry 100 Oxygen Delivery Method Room Air Orders (Tests/Meds): ED MEDICATIONS Discontinued Medications Generic Name Dose Route Start Last Admin Trade Name Freq PRN Reason Stop Dose Admin Ceftriaxone Sodium 1 gm 10/22/20 12:22 10/22/20 12:31 Ceftriaxone 1gm Vial IM 10/22/20 12:23 1 gm ONCE ONE Administration Protocol Lidocaine HCl 0 ml 10/22/20 12:22 10/22/20 12:31 Lidocaine 1% 5ml Pf Vial IM 10/22/20 12:23 2.5 ml ONCE ONE Administration Methylprednisolone Sodium Succinate 125 mg 10/22/20 12:22 10/22/20 12:31 Methylprednisolone Sod Succ 125mg Vial IM 10/22/20 12:23 125 mg ONCE ONE Administration [facility] [place] - General Stated complaint: sinus problem Time Seen by Provider: 10/22/20 12:18 Mode of Arrival: Ambulatory Source of Information: Patient Limitations: No Limitations Description of Symptoms (Recalled from Triage Doc. by RN): pt c/o sinus WARNER, chest congestion, and a productive cough with yellow sputum. pt believes she has bronchitits. HEENT Symptoms (Recalled from RN notes): Yes (sinus pressure) Resp Symptoms (Recalled from RN notes): Yes (chest congestion with productive yellow sputum) Skin Symptoms (Recalled from RN notes): No MS Symptoms (Recalled from RN notes): No Functional Status (Recalled from RN notes): na - History of Present Illness Provider Complaint: She states that for the past 2 days she has had worsening sinus congestion and a cough. She denies any fever. She is having a sore throat also. - Related Data Home Medications Medication Instructions Recorded Confirmed methocarbamol 500 mg tablet 500 mg PO HS 04/20/20 10/01/20 tramadol 50 mg tablet 50 mg PO DAILY 04/20/20 10/01/20 meloxicam 15 mg tablet 15 mg PO tab 08/18/20 10/01/20 simvastatin 10 mg tablet 10 mg PO tab 08/18/20 10/01/20 Previous Rx's Medication Instructions Recorded montelukast 10 mg tablet 10 mg PO DAILY #90 tab 11/08/19 hydrochlorothiazide 12.5 mg tablet 12.5 mg PO DAILY #90 tab 04/13/20 losartan 100 mg tablet 100 mg PO DAILY #30 tab 08/03/20 propranolol 60 mg capsule,24 60 mg PO DAILY #30 cap 08/03/20 hr,extended release
[2020-10-22 12:34] VITALS: BP 122/74; PULSE 63; RESP 16; TEMP 36.9
== END 2020-10-22 12:46 | disposition home or self-care (01) ==
LOC: UTC 12:43
PROVIDERS: Emergency Provider Nurse Practitioner Family; PCP Nurse Practitioner Family
DX: J01.90 Acute sinusitis, unspecified (principal); I10 Essential (primary) hypertension; K21.9 Gastro-esophageal reflux disease without esophagitis; F17.210 Nicotine dependence, cigarettes, uncomplicated; F12.10 Cannabis abuse, uncomplicated; Z79.899 Other long term (current) drug therapy
CPT/HCPCS: 96372; 99202; G0463

== ENCOUNTER 2020-10-23 17:29 | Emergency (ER) | payer OTHER, BC, SELFPAY ==
[2020-10-23 17:31] VITALS: BP 118/78; PULSE 78; RESP 18; TEMP 36.7; O2SAT 100; BMI 27.4
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
[2020-10-23 18:06] LABS: Urine Pregnancy, HCG Qual. Negative (Negative)
[2020-10-23 19:16] VITALS: BP 115/72; PULSE 71; RESP 14; TEMP 36.7; O2SAT 100
== END 2020-10-23 19:20 | disposition home or self-care (01) ==
PROVIDERS: Emergency Provider Family Medicine; PCP Nurse Practitioner Family
DX: M62.838 Other muscle spasm (principal); S16.1XXA Strain of muscle, fascia and tendon at neck level, initial encounter; R51.9 Headache, unspecified; V43.52XA Car driver injured in collision with other type car in traffic accident, initial encounter; Y92.481 Parking lot as the place of occurrence of the external cause
CPT/HCPCS: 70450; 72125; 81025; 96372; 99282

== ENCOUNTER → 2020-11-02 14:52 | Outpatient (CLI) | payer BC, SELFPAY ==
[2020-11-02 17:23] LABS: Blood Urea Nitrogen 6 mg/dl (7-17); Estimated Glomerular Filt Rate 114 ml/min (>60); GFR (African American) 138 ML/MIN (>60)
== END ==
PROVIDERS: Visit Provider Specialist
DX: R51.9 Headache, unspecified (principal)
CPT/HCPCS: 36415; 82565; 84520

== ENCOUNTER → 2020-11-09 10:50 | Outpatient (CLI) | payer BC, SELFPAY ==
--- NOTE | 2020-11-09 10:50 | MR_ITS ---
PROCEDURE: MR HEAD/BRAIN WO/W CON CLINICAL INDICATION: Venous anomaly. Headaches. COMPARISON: CT CT HEAD/BRAIN WO CON from 10/23/2020 TECHNIQUE: Routine multiplanar multi echo sequences are performed without gadolinium enhancement. FINDINGS: There are a few tiny foci of bright signal, one in the left frontal white matter and the other in the left parietal subcortical white matter without diffusion abnormality or abnormal enhancement, most consistent with minimal small vessel ischemic changes. There is no abnormal signal in the brainstem chris or cerebellum. Midline structures including the cavernous sinus regions and pituitary gland are normal. There is normal flow void in vertebral basilar system and internal carotid arteries suggesting patency. Skull base is normal. Minimal fluid in the right mastoid air cells noted. Mild bilateral mucosal thickening in maxillary sinuses and right ethmoid sinuses. No evidence of acute intracranial or subarachnoid hemorrhage. No cerebral edema mass effect or midline shift. Postcontrast images show no pathologic contrast enhancement or abnormally enhancing mass. IMPRESSION: A few tiny foci of bright signal in the left frontal white matter and left parietal subcortical white matter most consistent with minimal small vessel ischemic changes. No diffusion abnormality to suggest acute ischemia or infarction. Minimal fluid in the right mastoid air cells. Mild bilateral mucosal thickening in the maxillary sinuses and right ethmoid sinuses. Post-contrast images show no pathologic contrast enhancement or abnormal enhancing mass. Dictated by: Clovis Butterfield 11/09/2020 14:28 Clovis Butterfield in OV 11/09/2020 14:28
== END ==
PROVIDERS: PCP Nurse Practitioner Family; Visit Provider Specialist
DX: Q27.9 Congenital malformation of peripheral vascular system, unspecified (principal)
CPT/HCPCS: 70553; A9576

== ENCOUNTER 2020-12-01 16:00 | Outpatient (RCR) | payer OTHER, BC, SELFPAY ==
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
== END 2020-12-23 15:00 | disposition home or self-care (01) ==
LOC: PT.CARL 16:00
PROVIDERS: PCP Nurse Practitioner Family; Visit Provider Specialist
DX: M47.812 Spondylosis without myelopathy or radiculopathy, cervical region (principal); M62.838 Other muscle spasm
CPT/HCPCS: 97010; 97014; 97035; 97110; 97140; 97163; G0283

== ENCOUNTER → 2021-06-10 10:01 | Outpatient (CLI) | payer BC, SELFPAY ==
--- NOTE | 2021-06-10 10:02 | CA_ITS ---
APPROVED REPORT EXAM: Comprehensive 2D, Doppler, and color-flow Echocardiogram Supervisor Hydrochloric Area: Rosina Shah, RCS, RVS Ht: 5 ft 4 in Wt: 164lbs BSA: 1.80 BP: 143/86 mmHg Indications: Smoker, Cp, HTN, Mild MR 2D Dimensions IVSd 0.90 cm LA Volume 37.40 mL LVOT 1.72 cm (M/F) 1.5-2.5 LA Volume Index 20.80 mL/m2 (M/F) 16-34 M-Mode Dimensions RVDd 3.42 cm (0.9-2.6) LA Diam 3.13 cm (1.9-4.0) LVDd 3.87 cm (3.5-5.7) Ao Diam 2.79 cm (2.0-3.7) LVDs 2.50 cm (3.5-5.7) IVSd 1.29 cm (0.6-1.1) PWd 0.99 cm (0.6-1.1) EF (Teich) 65.50% EPSs 0.30 cm FS 35.40% EDV (Teich) 64.70 mL TAPSE 2.36 (<1.7) ESV (Teich) 22.30 mL LV Diastology E Decel Time 215.00 (160-240 msec) E/A Ratio 1.97 MED E' 11.60 (< 7 cm/sec) MED A' 7.40 cm/s E'/MED E' Ratio 10.10 (>14) LAT E' 11.50 (<10 cm/sec) LAT A' 7.40 cm/s E/LAT E' Ratio 10.19 (>14) Aortic Valve LVOT Max 109.00 (70-110 cm/s) LVOT VTI 26.19 cm AoV Peak Mansoor. 167.00 (50-130 cm/s) AO Peak GR. 11.20 mmHg AO Mean GR. 5.50 (<5 mmHg) AO VTI 39.80 (18-25 cm) EVERARDO (VTI) 1.53 (2.5-4.5 cm2) Mitral Valve MV A Velocity 60.00 (40-130 cm/s) E/A Ratio 1.97 MV Decel. Time 215.00 (160-240 ms) MV Mean Gr. 1.20 (<2mmHg) Pulmonary Valve PV Peak Velocity 94.00 (50-150 cm/s) Tricuspid Valve TR P. Velocity 231.00 cm/s RAP Estimate 10.00 mmHg RVSP 31.30 mmHg Left Ventricle Left atrium is normal size, left ventricle is normal size, there is no concentric left ventricular hypertrophy, visually estimated ejection fraction 55% with no regional wall motion abnormality, diastolic parameters appears to be normal in the study. Right Ventricle Right atrium and ventricle qualitatively normal size and contractility. Aortic Valve Aortic valve is grossly normal, there is no aortic stenosis or aortic insufficiency. Mitral Valve Mitral valve grossly normal, there is mild mitral regurgitation. Tricuspid Valve Tricuspid valve grossly normal, there is mild tricuspid rotation, calculated right ventricular systolic pressure 31 mmHg. Pulmonic Valve Pulmonic valve is poorly visualized. Great Vessels Aortic root is normal size. Inferior vena cava is normal size with normal inspiratory collapse. Pericardium No significant pericardial effusion noted. Conclusion 1. Normal left ventricular size, normal left ventricular systolic function, visually estimated ejection fraction 55% with no regional wall motion abnormality, diastolic parameters are within normal range. 2. Mild mitral and tricuspid regurgitation, calculated right ventricular systolic pressure is 31 mmHg. 3. No significant pericardial effusion noted. 4. Inferior vena cava is normal size with normal inspiratory collapse. Electronically signed by : Kang Humphries MD 06/11/2021 09:28:52
== END ==
PROVIDERS: PCP Nurse Practitioner Family; Visit Provider Urology
DX: R07.9 Chest pain, unspecified (principal); R06.00 Dyspnea, unspecified; I34.0 Nonrheumatic mitral (valve) insufficiency; I10 Essential (primary) hypertension; R06.83 Snoring; R40.0 Somnolence
CPT/HCPCS: 93306

== ENCOUNTER → 2021-09-07 12:49 | Outpatient (CLI) | payer BC, SELFPAY ==
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
== END ==
PROVIDERS: PCP Nurse Practitioner Family; Referring Provider Nurse Practitioner Family; Visit Provider Neurological Surgery
DX: M54.12 Radiculopathy, cervical region (principal)
CPT/HCPCS: 72141; 76376

== ENCOUNTER → 2022-02-09 10:22 | Outpatient (CLI) | payer BC, SELFPAY ==
[2022-02-09 11:08] LABS: Basophils # 0.2 K/mm3 (0-0.2); Basophils % 2.1 % (0.1-2.0); Eosinophils # 0.2 K/mm3 (0.0-0.4); Eosinophils % 2.5 % (0.1-12.0); Hematocrit 46.6 % (37.0-47.0); Hemoglobin 15.5 g/dL (12.2-16.2); Lymphocytes # 1.7 K/mm3 (0.7-4.5); Lymphocytes % 17.7 % (10-50); Mean Corpuscular HGB Conc 33.3 g/dL (31.8-35.4); Mean Corpuscular Hemoglobin 32.1 pg (27.0-31.2); Mean Corpuscular Volume 96.2 fl (81-99); Mean Platelet Volume 9.2 fl (7.4-10.4); Monocytes # 0.7 K/mm3 (0.1-1.0); Monocytes % 6.9 % (1.7-9.3); Neutrophils # 6.9 K/mm3 (1.8-7.8); Neutrophils % 70.8 % (37.0-80.0); Platelet Count 310 K/mm3 (142-424); Red Blood Count 4.85 M/mm3 (4.20-5.40); Red Cell Distribution Width 12.3 % (11.5-17.5); White Blood Count 9.7 K/mm3 (4.8-10.8)
[2022-02-09 13:11] LABS: Alanine Aminotransferase 42 U/L (12-78); Albumin Level 4.7 g/dl (3.5-5.0); Alkaline Phosphatase 133 U/L (38-126); Anion Gap 14.4 mEq/L (5-15); Aspartate Amino Transferase 42 U/L (14-36); Bilirubin,Direct 0.2 mg/dl (0.0-0.4); Bilirubin,Indirect 0.2 mg/dL (0.0-0.9); Bilirubin,Total 0.4 mg/dl (0.2-1.3); Bilirubin,Unconjugated 0.2 mg/dL (0.0-1.1); Blood Urea Nitrogen 9 mg/dl (7-17); Calcium 9.6 mg/dl (8.4-10.2); Carbon Dioxide 28 mmol/L (22.0-30.0); Chloride 98 mmol/L (98-107); Cholesterol 142 mg/dl (140-200); Estimated Glomerular Filt Rate 95 ml/min (>60); GFR (African American) 115 ML/MIN (>60); Glucose 93 mg/dl (74-100); HDL Cholesterol 47 mg/dl (40-60); Magnesium 1.5 mg/dl (1.6-2.3); Potassium 4.4 mmoL/L (3.5-5.1); Sodium 136 mmol/L (136-145); Total Protein,Serum 7.2 g/dl (6.3-8.2); Triglycerides 165 mg/dl (30-150); VLDL Cholesterol 33 mg/dL (0-40)
[2022-02-09 13:27] LABS: Free T4 (Free Thyroxine) 0.99 ng/dl (0.78-2.19)
[2022-02-09 13:30] LABS: Direct LDL Cholesterol 69.31 mg/dL (100-129)
[2022-02-09 13:42] LABS: Thyroid Stimulating Hormone 2.75 uIU/mL (0.465-4.68)
== END ==
PROVIDERS: PCP Nurse Practitioner Family; Visit Provider Internal Medicine
DX: I10 Essential (primary) hypertension (principal); Z79.899 Other long term (current) drug therapy
CPT/HCPCS: 36415; 80048; 80061; 80076; 83735; 84439; 84443; 85025

== ENCOUNTER → 2022-03-30 14:35 | Outpatient (CLI) | payer BC, SELFPAY ==
[2022-03-30 18:40] LABS: Amphetamine/Metha Screen,Urine Negative ng/ml (<1000)
[2022-03-30 18:41] LABS: Barbiturates Screen,Urine Negative ng/ml (<200)
[2022-03-30 18:42] LABS: Benzodiazepines Screen,Urine Negative ng/ml (<200); Cannabinoid Screen,Urine Positive ng/ml (<50)
[2022-03-30 18:43] LABS: Cocaine Screen,Urine Negative ng/ml (<300)
[2022-03-30 18:44] LABS: Methadone Screen,Urine Negative ng/ml (<300); Opiate Screen,Urine Negative ng/ml (<300)
[2022-03-30 18:45] LABS: Phencyclidine Screen,Urine Negative ng/ml (<25)
== END ==
PROVIDERS: PCP Emergency Medicine; Visit Provider Emergency Medicine
DX: Z79.899 Other long term (current) drug therapy (principal)
CPT/HCPCS: 80305

== ENCOUNTER → 2022-05-03 09:17 | Outpatient (CLI) | payer OTHER, SELFPAY ==
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
== END ==
PROVIDERS: PCP Emergency Medicine; Visit Provider Emergency Medicine
DX: R51.9 Headache, unspecified (principal)
CPT/HCPCS: 70551

== ENCOUNTER → 2022-05-17 12:32 | Outpatient (CLI) | payer BC, SELFPAY | PROVIDERS: PCP Emergency Medicine; Visit Provider Internal Medicine | DX: R00.2 Palpitations (principal); I10 Essential (primary) hypertension; I34.0 Nonrheumatic mitral (valve) insufficiency; I07.1 Rheumatic tricuspid insufficiency | CPT/HCPCS: 93225; 93226 ==

== ENCOUNTER → 2022-05-25 15:08 | Outpatient (CLI) | payer BC, SELFPAY ==
--- NOTE | 2022-05-25 15:09 | CA_ITS ---
APPROVED REPORT EXAM: Comprehensive 2D, Doppler, and color-flow Echocardiogram Private Duty Rn: Bessie Torre CRT Ht: 5 ft 7 in Wt: 162lbs BSA: 1.85 BP: 134/88 mmHg Indications: Rheumatic Fever, Palpitations 2D Dimensions LVOT 1.72 cm (M/F) 1.5-2.5 LA Volume 39.30 mL LA Volume Index 20.80 mL/m2 (M/F) 16-34 M-Mode Dimensions RVDd 3.33 cm (0.9-2.6) LA Diam 2.74 cm (1.9-4.0) LVDd 3.85 cm (3.5-5.7) Ao Diam 3.40 cm (2.0-3.7) LVDs 2.79 cm (3.5-5.7) IVSd 1.33 cm (0.6-1.1) PWd 0.47 cm (0.6-1.1) EF (Teich) 54.10% FS 27.50% EDV (Teich) 63.90 mL TAPSE 2.21 (<1.7) ESV (Teich) 29.30 mL LV Diastology E Decel Time 247.00 (160-240 msec) E/A Ratio 2.21 MED E' 11.50 (< 7 cm/sec) MED A' 6.70 cm/s E'/MED E' Ratio 10.55 (>14) LAT E' 10.90 (<10 cm/sec) LAT A' 7.40 cm/s E/LAT E' Ratio 11.13 (>14) Aortic Valve AO Peak GR. 7.90 mmHg Mitral Valve MV E Max Mansoor. 121.00 (40-130 cm/s) MV A Velocity 55.00 (40-130 cm/s) E/A Ratio 2.21 MV Decel. Time 247.00 (160-240 ms) MV PHT 72.00 ms Tricuspid Valve TR P. Velocity 253.00 cm/s RAP Estimate 10.00 mmHg RVSP 35.70 mmHg Left Ventricle Left atrium is normal size, left ventricle is normal size, estimated ejection fraction 55% with no regional wall motion abnormality, diastolic parameters are within normal range. Right Ventricle Right atrium and right ventricle are normal size and contractility. Aortic Valve Aortic valve is grossly normal, there is no aortic stenosis aortic insufficiency. Mitral Valve Mitral valve grossly normal, there is no mitral stenosis, there is mild mitral regurgitation. Tricuspid Valve Tricuspid valve grossly normal, there is mild tricuspid regurgitation, tricuspid regurgitation jet velocity is inadequate for calculation of the right ventricular systolic pressure. Pulmonic Valve Pulmonic valve is poorly visualized. Great Vessels Aortic root is normal size. Inferior vena cava is normal 7 normal inspiratory collapse. Pericardium No significant pericardial effusion noted. Conclusion 1. Normal left ventricular size, preserved left ventricular systolic function, estimated ejection fraction 55% with no regional wall motion abnormality, diastolic parameters are within normal range. 2. Mild mitral and tricuspid regurgitation. 3. No significant pericardial effusion. 4. Inferior vena cava is normal size with normal inspiratory collapse. Electronically signed by : Kang Humphries MD 05/25/2022 19:54:26
== END ==
PROVIDERS: PCP Emergency Medicine; Visit Provider Internal Medicine
DX: R00.2 Palpitations (principal); I07.1 Rheumatic tricuspid insufficiency; I10 Essential (primary) hypertension; I34.0 Nonrheumatic mitral (valve) insufficiency
CPT/HCPCS: 93306

== ENCOUNTER → 2022-06-24 14:15 | Outpatient (CLI) | payer BC, SELFPAY ==
[2022-06-24 18:44] LABS: Amphetamine/Metha Screen,Urine Negative ng/ml (<1000)
[2022-06-24 18:45] LABS: Barbiturates Screen,Urine Negative ng/ml (<200)
[2022-06-24 18:46] LABS: Benzodiazepines Screen,Urine Negative ng/ml (<200); Cannabinoid Screen,Urine Positive ng/ml (<50)
[2022-06-24 18:47] LABS: Cocaine Screen,Urine Negative ng/ml (<300)
[2022-06-24 18:48] LABS: Methadone Screen,Urine Negative ng/ml (<300); Opiate Screen,Urine Negative ng/ml (<300)
[2022-06-24 18:49] LABS: Phencyclidine Screen,Urine Negative ng/ml (<25)
== END ==
PROVIDERS: PCP Emergency Medicine; Visit Provider Emergency Medicine
DX: Z79.899 Other long term (current) drug therapy (principal)
CPT/HCPCS: 80305

== ENCOUNTER → 2022-11-08 23:22 | Outpatient (CLI) | payer BC, SELFPAY ==
[2022-11-08 19:05] LABS: Benzodiazepines Screen,Urine Negative ng/ml (<200)
[2022-11-08 19:06] LABS: Amphetamine/Metha Screen,Urine Negative ng/ml (<1000); Barbiturates Screen,Urine Negative ng/ml (<200)
[2022-11-08 19:07] LABS: Cannabinoid Screen,Urine Positive ng/ml (<50)
[2022-11-08 19:08] LABS: Cocaine Screen,Urine Negative ng/ml (<300); Methadone Screen,Urine Negative ng/ml (<300)
[2022-11-08 19:09] LABS: Opiate Screen,Urine Negative ng/ml (<300)
[2022-11-08 19:10] LABS: Phencyclidine Screen,Urine Negative ng/ml (<25)
== END ==
PROVIDERS: PCP Emergency Medicine; Visit Provider Emergency Medicine
DX: M47.812 Spondylosis without myelopathy or radiculopathy, cervical region (principal)
CPT/HCPCS: 80305

== ENCOUNTER → 2023-01-13 14:33 | Outpatient (CLI) | payer BC, SELFPAY ==
[2023-01-13 17:15] LABS: Amphetamine/Metha Screen,Urine Negative ng/ml (<1000)
[2023-01-13 17:16] LABS: Barbiturates Screen,Urine Negative ng/ml (<200); Benzodiazepines Screen,Urine Negative ng/ml (<200)
[2023-01-13 17:17] LABS: Cannabinoid Screen,Urine Positive ng/ml (<50)
[2023-01-13 17:18] LABS: Cocaine Screen,Urine Negative ng/ml (<300); Methadone Screen,Urine Negative ng/ml (<300)
[2023-01-13 17:19] LABS: Opiate Screen,Urine Negative ng/ml (<300)
[2023-01-13 17:20] LABS: Phencyclidine Screen,Urine Negative ng/ml (<25)
== END ==
PROVIDERS: PCP Emergency Medicine; Visit Provider Emergency Medicine
DX: M47.812 Spondylosis without myelopathy or radiculopathy, cervical region (principal)
CPT/HCPCS: 80305

== ENCOUNTER 2023-01-23 12:44 | Emergency (ER) | payer BC, SELFPAY ==
[2023-01-23 13:10] VITALS: BP 141/90; PULSE 74; RESP 18; TEMP 37.2; O2SAT 98; BMI 25.7
--- NOTE | 2023-01-23 13:20 | XR_ITS ---
FINAL REPORT CLINICAL HISTORY: F/O LEFT THUMB FINDINGS: LEFT HAND Three views demonstrate no acute fracture or dislocation. The visualized joint spaces are normally aligned. The soft tissues are unremarkable. IMPRESSION: No acute process. Reviewed, Interpreted and Dictated by Bob Springer MD Transcribed by Deepa Khalil Authenticated and [facility]
--- NOTE | 2023-01-23 13:23 | EXP.UTC ---
Discharge Plan Disposition Patient Disposition: Home, Self-Care Condition: Good Prescriptions Prescriptions: New cephalexin 500 mg capsule 500 mg PO QID Qty: 40 0RF mupirocin 2 % ointment 1 applic topical TID 7 Days Qty: 15 0RF No Action methocarbamol 500 mg tablet 500 mg PO BID Qty: 60 0RF varenicline [Chantix Starting Month Box] 0.5 mg (11)- 1 mg (42) tablets,dose pack See Rx Instructions PO PER PKG DIR Qty: 53 0RF Rx Instructions: PO PER PKG DIR oxycodone-acetaminophen [Percocet] 7.5-325 mg tablet 1 tab PO TID Qty: 90 0RF omeprazole 40 mg capsule,delayed release(DR/EC) 40 mg PO DAILY Qty: 90 3RF simvastatin 10 mg tablet 10 mg PO DAILY Qty: 90 3RF propranolol [Inderal LA] 60 mg capsule,extended release 24 hr 60 mg PO DAILY Qty: 90 3RF Referrals Follow up/Referrals: Robson Payton DO [Staff Physician] - See instructions Johnny Scruggs MD [Primary Care Provider] - See instructions Activity Restrictions/Add. Instructions Additional Instructions/Restrictions: Keep the wound clean and dry. Watch the wound for signs of infection, such as redness, swelling, drainage, fever. etc. Take tylenol or ibuprofen for pain. Follow up with orthopedics (Dr. Payton) if you continue to have pain and soreness at the site. His office phone number will be on this paperwork. Please call and get yourself an appointment. GO TO THE ER FOR ANY WORSENING SYMPTOMS OR CONCERNS. Clinical Impressions Clinical Impression: Puncture wound of right thumb Instructions Patient Instructions: DI for Puncture Wound Discharge ED Provider: Clovis Nuñez [facility] [place] HPI General Stated complaint: AO [id number] FO in left thumb Mode of Arrival: Ambulatory Source of Information: Patient Limitations: No Limitations Time Seen by Provider: 01/23/23 13:23 Description of Symptoms (Recalled from Triage Doc. by RN): PATIENT C/O PIECE OF PLEXIGLASS IN LEFT THUMB X 3 DAYS HEENT Symptoms (Recalled from RN notes): No Resp Symptoms (Recalled from RN notes): No Skin Symptoms (Recalled from RN notes): Yes MS Symptoms (Recalled from RN notes): No Functional Status (Recalled from RN notes): WNL History of Present Illness Provider Complaint: She states that she was working with a piece of [employer] 3 days ago when it broke and she received a puncture in the tip of her left thumb from it. Since then it has been very sore. Related Data Previous Rx's Medication Instructions Recorded omeprazole 40 mg capsule,delayed 40 mg PO DAILY #90 caps 03/21/22 release methocarbamol 500 mg tablet 500 mg PO BID #60 tabs 03/30/22 simvastatin 10 mg tablet 10 mg PO DAILY #90 tabs 06/24/22 propranolol 60 mg capsule,24 60 mg PO DAILY #90 caps 07/11/22 hr,extended release (Inderal LA) oxycodone-acetaminophen 7.5 mg-325 1 tab PO TID #90 tabs 01/13/23 mg tablet (Percocet) varenicline 0.5 mg (11)-1 mg (42) See Rx Instructions PO PER PKG DIR 01/13/23 tablets in a dose pack (Chantix #53 tabs Starting Month Box) cephalexin 500 mg capsule 500 mg PO QID #40 caps 01/23/23 mupirocin 2 % topical ointment 1 applic topical TID 7 days #15 01/23/23 grams Allergies Allergy/AdvReac Type Severity Reaction Status Date / Time No Known Allergies Allergy Verified 01/13/23 10:37 Worker's Comp Is this a Worker's Comp case?: No [facility] Disclaimer: The information contained in this section may have been updated after the patient was seen, as this information can be updated by other users. Medical History Cervical nerve root impingement Cervical stenosis of spine Dyspnea Mitral valve dysplasia Palpitations Social History Smoking Status: Current every day smoker tobacco type: cigarettes packs per day: 1 second hand exposure: No alcohol intake: never substance use type: marijuana current occupational status: sueo
[2023-01-23 13:25] VITALS: BP 141/90; PULSE 74; RESP 18; TEMP 37.2; O2SAT 98
== END 2023-01-23 13:50 | disposition home or self-care (01) ==
PROVIDERS: Emergency Provider Nurse Practitioner Family; PCP Emergency Medicine
DX: S61.031A Puncture wound without foreign body of right thumb without damage to nail, initial encounter (principal); F17.210 Nicotine dependence, cigarettes, uncomplicated; W45.8XXA Other foreign body or object entering through skin, initial encounter
CPT/HCPCS: 73130; 99212; 99214; G0463

== ENCOUNTER → 2023-02-02 12:45 | Outpatient (CLI) | payer BC, SELFPAY ==
--- NOTE | 2023-02-02 12:45 | CT_ITS ---
FINAL REPORT TECHNIQUE: Thin section axial CT images were obtained through the neck after intravenous contrast administration. Coronal and sagittal reformats were also obtained. This study was performed with techniques to keep radiation doses as low as reasonably achievable (ALARA). Individualized dose reduction techniques using automated exposure control or adjustment of mA and/or kV according to the patient's size were employed. CLINICAL HISTORY: chronic throat pain, patient states it's on the left below jaw bone, pain since epiglottis surgery in 2019 COMPARISON: 09/24/2020 FINDINGS: The nasopharynx, oropharynx, hypopharynx and larynx are unremarkable. There are multiple small and borderline sized cervical nodes, also noted on the previous CT of the neck and unchanged. The thyroid gland is unremarkable. The visualized sinuses are clear. Postoperative changes are noted in the lower cervical spine. IMPRESSION: Multiple small and borderline sized cervical nodes, unchanged from prior neck CT of 2020. Postoperative change lower cervical spine. Reviewed, Interpreted and Dictated by Todd Menendez III, MD Transcribed by Lois Bryan Authenticated and [facility]
[2023-02-02 13:17] LABS: Blood Urea Nitrogen 9 mg/dl (7-17); Estimated Glomerular Filt Rate 94 ml/min (>60); GFR (African American) 114 ML/MIN (>60)
== END ==
LOC: RAD 12:45
PROVIDERS: PCP Emergency Medicine; Visit Provider Emergency Medicine
DX: R07.0 Pain in throat (principal)
CPT/HCPCS: 36415; 70491; 82565; 84520; Q9967

== ENCOUNTER → 2023-02-06 15:36 | Outpatient (CLI) | payer BC, SELFPAY ==
--- NOTE | 2023-02-06 15:36 | MR_ITS ---
FINAL REPORT CLINICAL HISTORY: back pain. ddd. numbness bilateral legs. FINDINGS: Multiplanar MR imaging of the lumbar spine was performed without contrast. On the sagittal T2-weighted images, disc degeneration is seen at several levels. The vertebral alignment is normal. There is no evidence of fracture. No bony mass is identified. The conus is seen at approximately the L1 level and has an unremarkable appearance. T11-12: Annular disc bulge. T12-L1: No significant central canal stenosis or neuroforaminal narrowing. L1-2: There is no significant canal stenosis or neural foraminal narrowing. L2-3: There is an annular disc bulge without significant canal stenosis or neural foraminal narrowing. L3-4: There is no significant canal stenosis or neural foraminal narrowing. L4-5: There is an annular disc bulge without significant canal stenosis or neural foraminal narrowing. L5-S1: There is an annular disc bulge and small central disc protrusion without significant central canal stenosis or neuroforaminal narrowing. IMPRESSION: Annular disc bulges at multiple levels with small central disc protrusion at L5-S1. No significant central canal stenosis or neuroforaminal narrowing. Reviewed, Interpreted and Dictated by Todd Menendez III, MD Transcribed by Deepa Khalil Authenticated and [facility]
== END ==
LOC: RAD 15:36
PROVIDERS: PCP Emergency Medicine; Visit Provider Emergency Medicine
DX: M54.9 Dorsalgia, unspecified (principal); M54.50 Low back pain, unspecified
CPT/HCPCS: 72148; 76376

== ENCOUNTER → 2023-02-13 14:23 | Outpatient (CLI) | payer BC, SELFPAY ==
[2023-02-13 19:43] LABS: Barbiturates Screen,Urine Negative ng/ml (<200)
[2023-02-13 19:44] LABS: Amphetamine/Metha Screen,Urine Negative ng/ml (<1000)
[2023-02-13 19:46] LABS: Benzodiazepines Screen,Urine Negative ng/ml (<200); Cocaine Screen,Urine Negative ng/ml (<300)
[2023-02-13 19:47] LABS: Cannabinoid Screen,Urine Positive ng/ml (<50)
[2023-02-13 19:48] LABS: Methadone Screen,Urine Negative ng/ml (<300); Phencyclidine Screen,Urine Negative ng/ml (<25)
[2023-02-13 19:49] LABS: Opiate Screen,Urine Negative ng/ml (<300)
== END ==
PROVIDERS: PCP Emergency Medicine; Visit Provider Emergency Medicine
DX: Z79.899 Other long term (current) drug therapy (principal)
CPT/HCPCS: 80305

== ENCOUNTER → 2023-05-18 12:24 | Outpatient (CLI) | payer BC, SELFPAY ==
--- NOTE | 2023-05-18 12:40 | MR_ITS ---
FINAL REPORT CLINICAL HISTORY: CHRONIC VOCAL CORD PAIN, TENDERNESS. COMPARISON: CT of the soft tissues of the neck dated 02/02/2023 FINDINGS: Multiplanar MR imaging of the neck was performed without and with contrast. There is magnetic susceptibility artifact present at the C6-7 level consistent with an anterior interbody fusion at that level. Scattered small bilateral neck nodes are present but without evidence of adenopathy. There is no evidence of mass. The nasopharynx, oropharynx, hypopharynx and larynx have an unremarkable appearance. Specifically, the vocal cords appear unremarkable. The thyroid gland has an unremarkable appearance. IMPRESSION: Magnetic susceptibility artifact at the C6-7 level consistent with a prior interbody fusion at that level. No significant adenopathy is identified, and no focal mass is noted. Specifically the vocal cords appear unremarkable. Reviewed, Interpreted and Dictated by Bob Springer MD Transcribed by Lois Bryan Authenticated and [facility]
[2023-05-18 13:26] LABS: Blood Urea Nitrogen 13 mg/dl (7-17); Estimated Glomerular Filt Rate 94 ml/min (>60); GFR (African American) 113 ML/MIN (>60)
== END ==
PROVIDERS: Nurse Practitioner; PCP Emergency Medicine; Visit Provider Otolaryngology
DX: H92.09 Otalgia, unspecified ear (principal); R09.A2 Foreign body sensation, throat; R68.84 Jaw pain; J38.1 Polyp of vocal cord and larynx; Z72.0 Tobacco use
CPT/HCPCS: 36415; 70543; 82565; 84520; A9576

== ENCOUNTER 2023-06-20 20:51 | Outpatient (CLI) | payer BC, SELFPAY ==
[2023-06-20 19:27] LABS: Amphetamine/Metha Screen,Urine Negative ng/ml (<1000)
[2023-06-20 19:28] LABS: Barbiturates Screen,Urine Negative ng/ml (<200)
[2023-06-20 19:29] LABS: Benzodiazepines Screen,Urine Negative ng/ml (<200)
[2023-06-20 19:30] LABS: Cannabinoid Screen,Urine Positive ng/ml (<50); Cocaine Screen,Urine Negative ng/ml (<300)
[2023-06-20 19:31] LABS: Methadone Screen,Urine Negative ng/ml (<300)
[2023-06-20 19:32] LABS: Opiate Screen,Urine Negative ng/ml (<300); Phencyclidine Screen,Urine Negative ng/ml (<25)
[2023-06-25 13:03] LABS: Opiates Negative (Cutoff=100); Oxycodone (GC/MS) 318 ng/mL (Cutoff=100); Oxymorphone (GC/MS) 244 ng/mL (Cutoff=100)
== END 2023-06-20 23:59 ==
LOC: LAB.DROPOF 20:52
PROVIDERS: PCP Nurse Practitioner Family; Visit Provider Nurse Practitioner Family
DX: Z79.899 Other long term (current) drug therapy (principal)
CPT/HCPCS: 80307; 80361; 80365; G0480

== ENCOUNTER 2023-08-22 20:44 | Outpatient (CLI) | payer BC, SELFPAY ==
[2023-08-22 17:57] LABS: Basophils # 0.1 K/mm3 (0-0.2); Basophils % 1.9 % (0.1-2.0); Eosinophils # 0.3 K/mm3 (0.0-0.4); Eosinophils % 4.1 % (0.1-12.0); Hematocrit 43.5 % (37.0-47.0); Hemoglobin 14.4 g/dL (12.2-16.2); Lymphocytes # 2.8 K/mm3 (0.7-4.5); Mean Corpuscular HGB Conc 33.1 g/dL (31.8-35.4); Mean Corpuscular Hemoglobin 32.3 pg (27.0-31.2); Mean Corpuscular Volume 97.7 fl (81-99); Monocytes # 0.4 K/mm3 (0.1-1.0); Monocytes % 5.9 % (1.7-9.3); Neutrophils # 3.4 K/mm3 (1.8-7.8); Platelet Count 251 K/mm3 (142-424); Red Blood Count 4.45 M/mm3 (4.20-5.40); Red Cell Distribution Width 12.4 % (11.5-17.5)
[2023-08-22 18:41] LABS: Hemoglobin A1C 5.4 % (4.0-6.0)
[2023-08-22 18:55] LABS: Erythrocyte Sedimentation Rate 5 mm/hr (0-20)
[2023-08-22 19:02] LABS: Chloride 108 mmol/L (98-107)
[2023-08-22 19:03] LABS: Sodium 137 mmol/L (136-145)
[2023-08-22 19:05] LABS: Alanine Aminotransferase 21 U/L (12-78); Aspartate Amino Transferase 26 U/L (14-36); Blood Urea Nitrogen 10 mg/dl (7-17); Estimated Glomerular Filt Rate 112 ml/min (>60); GFR (African American) 135 ML/MIN (>60)
[2023-08-22 19:06] LABS: Albumin/Globulin Ratio 1.7 (1.1-1.8); Alkaline Phosphatase 89 U/L (38-126); Bilirubin,Total 0.6 mg/dl (0.2-1.3); Calcium 9.7 mg/dl (8.4-10.2); Carbon Dioxide 23 mmol/L (22.0-30.0); Cholesterol 167 mg/dl (140-200); Globulin 2.3 g/dL (1.3-3.2); Glucose 92 mg/dl (74-100); HDL Cholesterol 42 mg/dl (40-60); Total Protein,Serum 6.3 g/dl (6.3-8.2); Triglycerides 123 mg/dl (30-150); VLDL Cholesterol 25 mg/dL (0-40)
[2023-08-22 19:17] LABS: Direct LDL Cholesterol 87.61 mg/dL (100-129)
[2023-08-22 19:18] LABS: C-Reactive Protein 2.1 mg/L (0-4)
[2023-08-22 19:22] LABS: Creatinine,Urine Random 101 mg/dL (Not Estab.)
[2023-08-22 19:59] LABS: Vitamin B12 345 pg/mL (239-931)
[2023-08-22 20:22] LABS: Folate 6.76 ng/mL
[2023-08-22 20:24] LABS: 25-OH Vitamin D, Total 29.1 ng/mL (30-100)
[2023-08-23 10:50] LABS: HIV Screen 4th Generation wRfx Non Reactive (Non Reactive)
[2023-08-23 12:35] LABS: HBsAg Screen Negative (Negative); HCV Ab Non Reactive (Non Reactive); Hep A Ab, IGM Negative (Negative); Hep B Core Ab, IgM Negative (Negative)
== END 2023-08-22 23:59 ==
LOC: LAB.DROPOF 20:44
PROVIDERS: PCP Internal Medicine; Visit Provider Internal Medicine
DX: E78.2 Mixed hyperlipidemia (principal); E55.9 Vitamin D deficiency, unspecified; G52.1 Disorders of glossopharyngeal nerve; R20.0 Anesthesia of skin; M47.22 Other spondylosis with radiculopathy, cervical region; M54.6 Pain in thoracic spine; R80.9 Proteinuria, unspecified; Z79.899 Other long term (current) drug therapy; Z11.4 Encounter for screening for human immunodeficiency virus [HIV]
CPT/HCPCS: 80053; 80061; 80074; 82043; 82306; 82570; 82607; 82746; 83036; 84443; 85025; 85651; 86140; 86703; G0432

== ENCOUNTER 2023-09-12 15:34 | Outpatient (CLI) | payer BC, SELFPAY ==
--- NOTE | 2023-09-12 15:35 | MR_ITS ---
FINAL REPORT CLINICAL HISTORY: back pain. NUMBNESS FROM MID BACK DOWN. NO INJURY OR TRAUMA COMPARISON: 02/29/2020 FINDINGS: Multiplanar MR imaging of the thoracic spine was performed without contrast. On the sagittal T2-weighted images, decreased signal is seen throughout the thoracic discs, most evident at T11-12. There is no evidence of fracture. The vertebral alignment is normal. The thoracic cord demonstrates normal signal and configuration. On the axial images, the previously identified small left paracentral disc protrusion at T11-12 is less evident on today's exam. IMPRESSION: Previous left paracentral disc protrusion at T11-12 is less evident. Reviewed, Interpreted and Dictated by Bob Springer MD Transcribed by Chiara Hall Authenticated and [facility]
== END 2023-09-12 23:59 | disposition home or self-care (01) ==
LOC: RAD 15:34
PROVIDERS: PCP Internal Medicine; Visit Provider Internal Medicine
DX: M54.9 Dorsalgia, unspecified (principal)
CPT/HCPCS: 72146

== ENCOUNTER 2024-01-26 13:53 | Outpatient (CLI) | payer BC, SELFPAY ==
--- NOTE | 2024-01-26 13:58 | XR_ITS ---
FINAL REPORT CLINICAL HISTORY: CERVICAL RADICULOPATHY AT C7 HX OF SURGERY 4 YRS AGO SPECIFICALLY ORDERED AP AND LATERAL ONLY, 2 VIEWS ONLY COMPARISON: None FINDINGS: Two views of the cervical spine were obtained. There is interbody fusion at C6-7. There is no fracture present. There is no malalignment. There are no significant degenerative changes. IMPRESSION: No acute process. Reviewed, Interpreted and Dictated by Bob Springer MD Transcribed by Chelsey Rees Authenticated and [facility]
== END 2024-01-26 23:59 | disposition home or self-care (01) ==
LOC: RAD 13:55
PROVIDERS: PCP Internal Medicine; Visit Provider Physician Assistant
DX: M54.12 Radiculopathy, cervical region (principal)
CPT/HCPCS: 72040

== ENCOUNTER 2024-03-06 09:54 | Outpatient (CLI) | payer BC, SELFPAY ==
[2024-03-06 19:45] LABS: Microalbumin/Creatinine Ratio 18.1
[2024-03-06 19:53] LABS: Creatinine,Urine Random 149 mg/dL (Not Estab.)
== END 2024-03-06 23:59 | disposition home or self-care (01) ==
LOC: LAB.DROPOF 03-07 09:55
PROVIDERS: PCP Internal Medicine; Visit Provider Internal Medicine
DX: I10 Essential (primary) hypertension (principal); Z72.0 Tobacco use
CPT/HCPCS: 82043; 82570

== ENCOUNTER 2024-10-16 15:20 | Outpatient (CLI) | payer BC, SELFPAY ==
[2024-10-16 18:04] LABS: Basophils # 0.1 K/mm3 (0-0.2); Basophils % 1.3 % (0.1-2.0); Eosinophils # 0.4 Kmm3 (0.0-0.4); Eosinophils % 4.6 % (0.1-12.0); Hematocrit 41.9 % (37.0-47.0); Hemoglobin 14.4 g/dL (12.2-16.2); Immature Granulocytes # 0.01 10^3uL; Immature Granulocytes % 0.1 %; Lymphocytes # 3.8 K/mm3 (0.7-4.5); Lymphocytes % 41.7 % (10-50); Mean Corpuscular HGB Conc 34.4 g/dL (31.8-35.4); Mean Corpuscular Hemoglobin 31.4 pg (27.0-31.2); Mean Corpuscular Volume 91.5 fl (81-99); Mean Platelet Volume 12.2 fl (7.4-10.4); Monocytes # 0.7 K/mm3 (0.1-1.0); Monocytes % 7.7 % (1.7-9.3); Neutrophils # 4.1 K/mm3 (1.8-7.8); Neutrophils % 44.6 % (37.0-80.0); Nucleated Red Blood Cells # 0 10^3/uL; Nucleated Red Blood Cells % 0 %; Platelet Count 322 K/mm3 (142-424); Red Blood Count 4.58 M/mm3 (4.20-5.40); Red Cell Distribution Width 12.5 % (11.5-17.5); Red Cell Distribution Width-SD 41.4 fL; White Blood Count 9.2 K/mm3 (4.8-10.8)
[2024-10-16 19:17] LABS: Alanine Aminotransferase 26 U/L (12-78); Albumin Level 4.5 g/dl (3.5-5.0); Albumin/Globulin Ratio 2.1 (1.1-1.8); Alkaline Phosphatase 107 U/L (38-126); Anion Gap 12.1 mEq/L (5-15); Aspartate Amino Transferase 21 U/L (14-36); Bilirubin,Total 0.7 mg/dl (0.2-1.3); Blood Urea Nitrogen 11 mg/dl (7-17); Calcium 9.3 mg/dl (8.4-10.2); Carbon Dioxide 23 mmol/L (22.0-30.0); Chloride 104 mmol/L (98-107); Cholesterol 145 mg/dl (140-200); Estimated Glomerular Filt Rate 93 ml/min (>60); GFR (African American) 113 ML/MIN (>60); Globulin 2.1 g/dL (1.3-3.2); Glucose 82 mg/dl (74-100); HDL Cholesterol 48 mg/dl (40-60); Potassium 4.1 mmoL/L (3.5-5.1); Sodium 135 mmol/L (136-145); Total Protein,Serum 6.6 g/dl (6.3-8.2); Triglycerides 130 mg/dl (30-150); VLDL Cholesterol 26 mg/dL (0-40)
[2024-10-16 19:29] LABS: 25-OH Vitamin D, Total 39.6 ng/mL (30-100)
[2024-10-16 19:30] LABS: Direct LDL Cholesterol 83.55 mg/dL (100-129)
[2024-10-16 19:43] LABS: Thyroid Stimulating Hormone 1.52 uIU/mL (0.465-4.68)
== END 2024-10-16 23:59 | disposition home or self-care (01) ==
LOC: LAB.DROPOF 23:08
PROVIDERS: PCP Nurse Practitioner Family; Visit Provider Nurse Practitioner Family
DX: Z00.00 Encounter for general adult medical examination without abnormal findings (principal); E55.9 Vitamin D deficiency, unspecified
CPT/HCPCS: 80053; 80061; 82306; 84443; 85025

== ENCOUNTER 2025-01-23 13:54 | Outpatient (CLI) | payer BC, SELFPAY ==
--- OUTSIDE RECORDS SUMMARY | 2024-06-25 09:15 | XMS_ITS ---
Author Organization [facility] Address [address] [place] [address] Care Team Providers Care Turbine Engineer Name Role Phone JabierdanielKelvin Unavailable [phone] REASON FOR VISIT NEW PATIENT Encounters Encounter Location Date Provider Diagnosis [place] [facility] [address] [place] [address] 06/25/2024 Kelvin Weir Plan Of Treatment No Information Progress Notes * Dennis CAMARILLOaDOB:1984 (39 yo F)Acc No.[id number]:06/25/2024 Progress Notes Patient: Colleen GARCIA Provider: Sami Weir MD :1985 A ge:39 Y S ex:Female Date:06/25/2024 Address:[address] [place], [place] [address] Subjective: * Chief Complaints: * 1 . NEW PATIENT. * Medical History: Objective: * Vitals: Assessment: Plan: * Treatment: * * Electronic signature of Husam Weir MD on 01/23/2025 at 02:03 PM EDT Sign off status: Pending * Provider: Sami Weir MD Date: 0 06/25/2024 Generated for Rianai ng/Fapatelg/eTransmitting on: 0 01/23/2025 02:03 PM EDT
--- OUTSIDE RECORDS SUMMARY | 2025-01-15 13:04 | XMS_ITS | Encounter Summary ---
Author Organization [facility] Address [address] [place] [address] Care Team Providers Care Lithographer Apprentice Name Role Phone Karla Karimi KEO Primary Care Provider [phone] Reason for Referral * Imaging (Routine) - Closed Specialty Diagnoses / Procedures Referred By Andrea astudillo Referred To Contact Radiology Diagnoses Throat pain Procedures CT Soft Tissue Neck w IV Contrast Koby Juarez PA [address] [address] Phone: tel: fax: Referral ID Status Reason Start Date Expiration Date Visits Re quested Visits Authorized [id number] Closed 09/26/2024 03/28/2026 1 1 Reason for Visit * Imaging (Routine) - Closed Specialty Diagnoses / Procedures Referred By Andrea astudillo Referred To Contact Radiology Diagnoses Throat pain Procedures CT Soft Tissue Neck w IV Contrast Koby Juarez PA [address] [address] Phone: tel: fax: Referral ID Status Reason Start Date Expiration Date Visits Re quested Visits Authorized [id number] Closed 09/26/2024 03/28/2026 1 1 Encounter Details Date Type Department Care Team (Latest Contact Info) Description 01/15/2025 1:04 PM EDT - 01/15/2025 11:59 PM EDT Hospital Encounter [facility] [address] [place] [address] Throat pain Discharge Disposition: Home or Self Care Social History Tobacco Use Types Packs/Day Years Used Date Smoking Tobacco: Every Day Cigarettes 0.5 24.7 Started: 2000 Smokeless Tobacco: Never Alcohol Use Standard Drinks/Week Comments Yes 0 (1 standard drink = 0.6 oz pur e alcohol) PHQ-2 Answer Date Recorded Patient Health Questionnaire-2 Score 0 01/15/2025 PHQ-9 Answer Date Recorded Patient Health Questionnaire-9 Score 0 01/15/2025 Comments Unknown Sex and Gender Information Value Date Recorded Sex Assigned at Not on file Legal Sex Female 6:31 PM EDT Gender Identity Not on file Sexual Orientation Not on file documented as of this encounter Functional Status * Over the past 2 weeks, how often have you been bothered by any of the following problems? Question Answer Date of Assessment Author Little interest or pleasure in doing things Not at all 01/15/2025 3:07 PM Angélica Awan Feeling down, depressed, or hopeless Not at all 01/15/2025 3:07 PM Angélica Awan Patient Health Questionnaire -2 Score 0 01/15/2025 3:07 PM Angélica Awan * Question Answer Date of Assessment Author Trouble falling or staying asleep, or sleeping too much Not at all 01/15/2025 3:07 PM Angélica Awan Feeling tired or having nathanael le energy Not at all 01/15/2025 3:07 PM Angélica Awan Poor appetite or overeating Not at all 01/15/2025 3: 07 PM Angélica Awan Feeling bad about yourself - or that you are a failure or have let yourself or your family down Not at all 01/15/2025 3:07 PM Angélica Awan Trouble concentrating on things, such as reading the newspaper or watching television Not at all 01/15/2025 3:07 PM Angélica Awan Moving or speaking so slowly that other people could have noticed? Or the opposite - being so fidgety or restless that you have been moving around a lot more than usual. Not at all 01/15/2025 3:07 PM EDT Angélica Banks Thoughts that you would be better off or hurting yourself in some way Not at all 01/15/2025 3:07 PM EDT Terri Banks Patient Health Questionnaire -9 Score 0 01/15/2025 3:07 PM EDT Angélica Banks documented as of this encounter Medications at Time of Discharge meloxicam (Mobic) 15 MG tablet Take 1 tablet by mouth daily. Multiple Vitamins-Minerals (Hair Skin and Nails Formula) tablet Take by mouth every other day. nystatin (Mycostatin) 069761 UNIT/ML suspension Take 5 mL by mouth in the morning and 5 mL at noon and 5 mL in the evening and 5 mL before bedtime. Swish in mouth and spit out. 280 mL 08/20/2024 oxyCODONE (Roxicodone) 10 MG immediate release tablet 08/18/2024 propranolol LA (Inderal LA) 60 MG 24 hr capsule 07/14/2019 documented as of this encounter Miscellaneous Notes * Jamie Landis L - 01/15/2025 1:09 PM EDT Images from the original note were not included. 1639 Caring for Yourself after Contrast Imaging If you had ORAL contrast: ? You can go back to your normal diet and activities as tolerated. ? Drink plenty of fluids, unless told otherwise. If you had IV contrast: ? You can go back to your normal diet and activities as tolerated. ? Drink plenty of fluids, unless told otherwise. ? Leave a bandage on the site for 30 minutes (where the IV was inserted or blood was drawn). If you had Intravesical (bladder) contrast: ? Return to normal diet and activity. What you need to know about delayed reaction to IV contrast What is IV Contrast? ? Contrast is a dye that is put into your body through an IV. ? It is used for imaging scans such as CT scans and MRIs. ? The contrast makes blood vessels, organs and other parts of your body show up better on the scan. What do I need to do after IV contrast? ? Drink lots of fluids. This will help flush the contrast out of your system. ? Drink 2-3 extra glasses or bottles of water within 4 hours of your scan. What is a contrast reaction? ? A contrast reaction is a bad side effect from the contrast dye. ? It is rare but it does happen. ? They can be mild - such as sneezing, itching, or hives. ? They can be severe - such as trouble breathing, throat swelling, and irregular heart beat. When do these reactions happen? ? They often happen right after the contrast is injected. ? Some happen hours after going home. Go to the nearest Emergency Department right away if you have any of these symptoms after you leavethe clinic or hospital. ? Sneezing ? Itching in your mouth, throat, eyes, ears, or skin ? Rash or hives ? Throwing up or stomach sickness ? High heart rate or ?racing? of your heart ? Feeling dizzy or woozy ? Feeling short of breath or like you can?t take a deep breath ? Feeling very anxious for no other reason It is very important that these reactions be treated. Tell the doctor or nurse that you are having a reaction to IV contrast dye. Do not ignore any sign of a reaction! All reactions must be assessed by a doctor. Call 911 if you are alone and your reaction is more than mild sneezing or itching. If you have a mild reaction, call to speak with a Radiologist, explain that you havehad a contrast reaction, as this needs to be added to your medical record. documented in this encounter Plan of Treatment Not on file documented as of this encounter Procedures Procedure Name Priority Date/Time Associated Diagnosis Comments CT SOFT TISSUE NECK W IV CONTRAST Routine 01/15/2025 1:46 PM EDT Throat pain documented in this encounter Results * CT Soft Tissue Neck w IV Contrast (01/15/2025 1:46 PM EDT) Anatomical Region Laterality Modality Neck Computed Tomogra phy Impressions 01/16/2025 7:54 AM EDT Nonspecific small triangular focus of asymmetric tissue in the left lateral oropharyngeal wall measuring up to 0.6 cm which is amenable to direct inspection. CRITICAL RESULT: No. COMMUNICATION: Per this written report. By electronically signing this report, I, the attending physician, attest that I have personally reviewed the images/data for the above examination(s) and agree with the final edited report. Drafted by Armando Ho M.D. on 01/15/2025 6:46 PM Final report signed by Pardeep Rosales MD on 01/16/2025 7:54 AM Narrative 01/16/2025 7:54 AM EDT CLINICAL INDICATION: pain of left oropharynx TECHNIQUE: Helical images were obtained through the neck, and reconstructed in the axial plane on bone and soft tissue algorithm at multiple slice thicknesses. Coronal and sagittal reformatted images were created. 100 mL of Omnipaque 300 were administered intravenously. Total DLP (Dose-Length Product): 624.92 mGy.cm. Please note: The reported value represents the total of one or more individual components during the CT acquisition on this date and at this time, and as such, the same value may appear in more than one CT report depending on the interpreting/reporting physicians. COMPARISON: Outside MRI neck 05/18/2023 Outside neck 03/04/2023 FINDINGS: Diagnostic Quality: Adequate. Soft Tissues: No masses are present within the soft tissues of the neck. Lymph Nodes: No significant cervical adenopathy is present. Pharynx/Larynx: Small triangular asymmetric soft tissue along the left lateral oral pharyngeal wall measuring up to 0.6 x 0.4 cm in the axial plane (S3: 350). Oral Cavity: No large masses are present within the oral cavity within the limitations of the study. Parapharyngeal Space: No lesions are present within the parapharyngeal space. Salivary Glands: The parotid and submandibular glands are normal in size without definite focal lesions. Thyroid: No focal thyroid lesions are present, within the limitations of the study. Orbits/Paranasal Sinuses/Skull Base/Posterior Fossa: No orbital masses are present within the visualized portions of the orbits. The visualized paranasal sinuses are grossly clear. Within the skull base, there is no focal lesion or destructive process. No abnormality is identified within the posterior fossa. Bones/Spine: There is straightening of the typical cervical lordosis which may be secondary to position or muscle spasm. Post surgical changes related to C6-C7 anterior cervical discectomy and fusion with interbody spacers. Thoracic Inlet and Lung Apices: Within the limitations of the study, no large masses are present at the thoracic inlet. The lung apices are grossly clear. Multiple calcified mediastinal lymph nodes are seen and likely represent sequela of prior granulomatous disease. Other Findings: None. Procedure Note Pardeep Rosales MD - 01/16/2025 CLINICAL INDICATION: pain of left oropharynx TECHNIQUE: Helical images were obtained through the neck, and reconstructed in theaxial plane on bone and soft tissue algorithm at multiple slicethicknesses. Coronal and sagittal reformatted images were created. 100 mLof Omnipaque 300 were administered intravenously. Total DLP (Dose-Length Product): 624.92 mGy.cm. Please note: The reportedvalue represents the total of one or more individual components during theCT acquisition on this date and at this time, and as such, the same valuemay appear in more than one CT report depending on theinterpreting/reporting physicians. COMPARISON: Outside MRI neck 05/18/2023 Outside neck 03/04/2023 FINDINGS: Diagnostic Quality: Adequate. Soft Tissues: No masses are present within the soft tissues of the neck. Lymph Nodes: No significant cervical adenopathy is present. Pharynx/Larynx: Small triangular asymmetric soft tissue along the leftlateral oral pharyngeal wall measuring up to 0.6 x 0.4 cm in the axialplane (S3: 350). Oral Cavity: No large masses are present within the oral cavity within thelimitations of the study. Parapharyngeal Space: No lesions are present within the parapharyngealspace. Salivary Glands: The parotid and submandibular glands are normal in sizewithout definite focal lesions. Thyroid: No focal thyroid lesions are present, within the limitations ofthe study. Orbits/Paranasal Sinuses/Skull Base/Posterior Fossa: No orbital masses arepresent within the visualized portions of the orbits. The visualizedparanasal sinuses are grossly clear. Within the skull base, there is nofocal lesion or destructive process. No abnormality is identified withinthe posterior fossa. Bones/Spine: There is straightening of the typical cervical lordosis whichmay be secondary to position or muscle spasm. Post surgical changesrelated to C6-C7 anterior cervical discectomy and fusion with interbodyspacers. Thoracic Inlet and Lung Apices: Within the limitations of the study, nolarge masses are present at the thoracic inlet. The lung apices aregrossly clear. Multiple calcified mediastinal lymph nodes are seen andlikely represent sequela of prior granulomatous disease. Other Findings: None. IMPRESSION: Nonspecific small triangular focus of asymmetric tissue in the leftlateral oropharyngeal wall measuring up to 0.6 cm which is amenable todirect inspection. CRITICAL RESULT: No. COMMUNICATION: Per this written report. By electronically signing this report, I, the attending physician, attestthat I have personally reviewed the images/data for the aboveexamination(s) and agree with the final edited report. Drafted by Armando Ho M.D. on 01/15/2025 6:46 PM Final report signed by Pardeep Rosales MD on 01/16/2025 7:54 AM [address] MATH[address] IMG CT PROCEDURES Final Result documented in this encounter Visit Diagnoses Diagnosis Throat pain documented in this encounter Administered Medications Inactive Administered Medications - up to 3 most recent administrations Medication Order MAR Action Action Date Dose Rate Site iohexol (OMNIPaque) 300 MG/ML injection 100 mL 100 mL, Intravenous, Once in imaging, 1 dose, Starting on Mon01/15/25 at 1309, Until Mon01/15/25 at 1338, Routine, Imaging Protocol Orders Given 01/15/2025 1:38 PM EDT 100 mL documented in this encounter Additional Health Concerns Assessment Noted Time PHQ-9 Depression Total Score: 0 01/16/20 3:07 PM EDT A fall risk assessment has been complete d for the patient 01/15/2025 3:08 PM EDT A Body Mass Index follow-up plan has been documented for the patient 08/21/2024 11:31 AM EDT documented as of this encounter Care Teams Lithographer Apprentice Relationship Specialty Start Date End Date Karla Karimi APRN [address] [place] [address] PCP - General 10/09/20 documented as of this encounter
--- OUTSIDE RECORDS SUMMARY | 2025-01-15 15:00 | XMS_ITS | Encounter Summary ---
Author Organization [facility] Address [address] [place] [address] Care Team Providers Care Respiratory Therapy Technician Name Role Phone Karla Karimi KEO Primary Care Provider +1- [phone] Reason for Referral * Consultation (Routine) - Authorized Specialty Diagnoses / Procedures Referred By Andrea astudillo Referred To Contact Neurology Diagnoses Bad headache Koby Juarez PA [address] [address] Phone: tel: fax: [facility] [address] [place] [address] Phone: tel: fax: Referral ID Status Reason Start Date Expiration Date Visits Requested Visits Authorized [id number] Authorized Specialty Services Required 01/16/2025 07/18/2026 1 1 Reason for Visit * Reason Comments Follow-up Encounter Details Date Type Department Care Team ([facility] Contact Info) Description 01/15/2025 3:00 PM EDT Office Visit [facility] [address] [place] [id number] Koby Juarez PA [id number] [place] [address] Bad headache (Primary Dx); Throat pain Social History Tobacco Use Types Packs/Day Years [...] on file documented as of this encounter Last Filed Vital Signs Vital Sign Reading Time Taken Comments Blood Pressure 129/85 01/15/2025 3:03 PM EDT Pulse 66 01/15/2025 3:03 PM EDT Temperature 36.3 C (97.4 F) 01/15/2025 3:03 PM EDT Respiratory Rate 16 01/15/2025 3:03 PM EDT Oxygen Saturation 98% 01/15/2025 3:03 PM EDT Inhaled Oxygen Concentration - - Weight 70.3 kg (154 lb 15.7 oz) 01/15/2025 3:03 PM EDT Height 167.6 cm (5' 6 ) 01/15/2025 3:03 PM EDT Body Mass Index 25.01 01/15/2025 3:03 PM EDT documented in this encounter Functional Status * Over the past 2 weeks, how often have you been bothered by any of the following problems? Question Answer Date of Assessment Author Little interest or pleasure in doing things Not at all 01/15/2025 3:07 PM EDT Angélica Banks Feeling down, depressed, or hopeless Not at all 01/15/2025 3:07 PM EDT Angélica Banks Patient Health Questionnaire -2 Score 0 01/15/2025 3:07 PM EDT Angélica Banks * Question Answer Date of Assessment Author Trouble falling or staying asleep, or sleeping too much Not at all 01/15/2025 3:07 PM EDT Angélica Banks Feeling tired or having nathanael le energy Not at all 01/15/2025 3:07 PM EDT Angélica Banks Poor appetite or overeating Not at all 01/15/2025 3: 07 PM EDT Angélica Banks Feeling bad about yourself - or that you are a failure or have let yourself or your family down Not at all 01/15/2025 3:07 PM Angélica Awan Trouble concentrating on things, such as reading the newspaper or watching television Not at all 01/15/2025 3:07 PM ASHT Angélica Banks Moving or speaking so slowly that other people could have noticed? Or the opposite - being so fidgety or restless that you have been moving around a lot more than usual. Not at all 01/15/2025 3:07 PM Angélica Awan Thoughts that you would be better off or hurting yourself in some way Not at all 01/15/2025 3:07 PM Terri Awan Patient Health Questionnaire -9 Score 0 01/15/2025 3:07 PM Angélica Awan documented as of this encounter Miscellaneous Notes * Progress Notes - Koby Juarez PA - 01/15/2025 3:00 PM EDT Chief Complaint Patient presents with Follow-up Colleen Dawson is a 39 y.o. female who presents to our clinic today for follow up evaluation. She is well known to our clinic secondary to chronic left- sided throat pain. The patient notes that this has been occurring since 2019. She states that this discomfort began following removal of apolyp from the left aspect of her epiglottis. She notes that this discomfort has progressed since at time. She notes that she has discomfort when air moves over this area of her throat. She notes that her discomfort feels as though it was extended to involve her left jaw and left ear. She also notes that she will have vibrations in her left eye when the discomfort increases. She notes that she was seen 3 separate ENT providers with various diagnoses including carotidynia, glossopharyngeal neuralgia, TMJ. She also notes that she was experiencing pain on the left aspect of her neck. She also has history of ACDF, but her discomfort predates her cervical fusion. She returns for clinic today for reassessment with CT imaging. The patient's images are reviewed bymyself today in clinic without obvious evidence of concerning mass or lesion. The patient demonstrates stable cervical lymph nodes when comparing to prior CT imaging study. She notes today that her discomfort has shifted and now majority of the discomfort is along the inferior aspect of the left mandible. She had continues to have vibrations of her left eye. Her height is 1.676 m (5' 6 ) and weight is 70.3 kg (154 lb 15.7 oz). Her oral temperature is 36.3 ??C (97.4 ??F). Her blood pressure is 129/85 and her pulse is 66. Her respiration is 16 and oxygen saturation is 98%. Past Medical History[1] Oncology History No history exists. She has a past surgical history that includes Sinus surgery (N/A). Her family history includes Diabetes in an other family member; Heart attack in an other family member; Other cancer in an other family member. She reports that she has been smoking cigarettes. She started smoking about 24 years ago. She has a12.3 pack-year smoking history. She has never used smokeless tobacco. She reports current alcohol use. Nutrition Assessment Anthropometrics: Wt Readings from Last 3 Encounters: 01/15/25 70.3 kg (154 lb 15.7 oz) 08/20/24 76.3 kg (168 lb 3.4 oz) 07/19/19 68.9 kg (152 lb 0.1 oz) Ht Readings from Last 1 Encounters: 01/15/25 1.676 m (5' 6 ) BMI Readings from Last 1 Encounters: 01/15/25 25.01 kg/m?? Biochemical: Lab Results Component Value Date GLUCOSE 93 03/16/2020 CALCIUM 9.7 03/16/2020 NA 138 03/16/2020 K 4.5 03/16/2020 CL 102 03/16/2020 BUN 9 03/16/2020 CREATININE 0.73 03/16/2020 PHYSICAL EXAMINATION: General: Healthy-appearing 39 y.o. patient, alert and oriented x3, in no acute distress, well nourished, well developed. Psychiatric evaluation: Normal mood and affect, very pleasant and cooperative. Nasal cavity examination: Septum is midline. Oral cavity examination: The oral cavity is evaluated without concerning ulceration or lesion. No concerning oropharyngeal lesion. The tongue demonstrates full range of motion. Neck: soft and supple. I did not feel any enlarged lymphadenopathy. Eyes: Extraocular movements are intact bilaterally. PERRLA. Neurological examination: Cranial nerves II-XII are grossly intact. Skin of the scalp, neck and face: did not reveal any evidence of significant rashes or suspicious appearing nevi or other concerning lesions. Endocrine examination: I do not feel any thyroid nodules. No thyromegaly. Respiratory: chest is symmetrical, breathing comfortably without effort. The patient has been counseled on tobacco cessation: No Diagnosis Plan 1. Bad headache Ambulatory referral to Neurology 2. Throat pain === 01/15/25 === CT SOFT TISSUE NECK W IV CONTRAST - Narrative - CLINICAL INDICATION: pain of left oropharynx TECHNIQUE: [...] tissue along the left lateral oral pharyngeal wallmeasuring up to 0.6 x 0.4 cm in [...] related to C6-C7 anterior cervical discectomy and fusionwith interbody spacers. Thoracic Inlet and Lung Apices: Within the limitations of the study, no large masses are present atthe thoracic inlet. The lung apices are grossly clear. Multiple calcified mediastinal lymph nodes are seen and likely represent sequela of prior granulomatous disease. Other Findings: None. - Impression - Nonspecific small triangular focus of asymmetric tissue [...] Pardeep Rosales MD on 01/16/2025 7:54 AM IMPRESSION/PLAN: Ms. Dawson returns for clinic today for reassessment. She presents for clinic today with updatedCT imaging which does not demonstrate any obvious radiographic findings to explain her chronic discomfort. She notes that her discomfort has been constant since she had removal of cystic lesion from the epiglottis by outside ENT provider. The patient has previously undergone endoscopy without concerning. The patient is educated about CT findings today. The patient may be experiencing some glossopharyngeal neuralgia as previously diagnosed. The patient does note that she continues to have worsening vibrations of her left eye. She will be referred to Neurology for further assessment for these symptoms to see if there is some sort of neurologic component to her symptoms. The patient will return to our clinic on an as-needed basis at this time. She is advised to contact us if there is any additional questions, concerns, or worsening symptoms. KAREEN Connolly Digital speech recognition software was used to dictate this note and, despite all efforts to proofread, some dictation errors may occur. If you have any questions, please do not hesitate to contact me. [1] Past Medical History: Diagnosis Date Arthritis Ear problems Headache Heart trouble Heartburn High blood pressure Personal history of other diseases of the circulatory system History of hypertension Sinus trouble documented in this encounter Plan of Treatment Scheduled Referrals Name Type Priority Associated Diagnoses Order Schedule Ambulatory referral to Neurology Outpatient Referral Routine Bad headache Expected: 01/16/2025 (Approximate), Expires: 07/20/2026 documented as of this encounter Visit Diagnoses Diagnosis Bad headache- Primary Headache Throat pain documented in this encounter Additional Health Concerns Assessment Noted Time PHQ-9 Depression Total Score: 0 01/16/20 3:07 PM EDT A fall risk assessment has been complete d for the patient 01/15/2025 3:08 PM EDT A Body Mass Index follow-up plan has been documented for the patient 08/21/2024 11:31 AM EDT documented as of this encounter Care Teams Respiratory Therapy Technician Relationship Specialty Start Date End Date Karla Karimi APRN [address] [place] [address] PCP - General 10/09/20 documented as of this encounter
--- NOTE | 2025-01-23 14:00 | MM_ITS ---
PROCEDURE INFORMATION: Exam: MG Bilateral Screening 3D Mammography Exam date and time: 01/23/2025 2:01 PM Age: 39 years old Clinical indication: Screening examination TECHNIQUE: Imaging protocol: Bilateral Screening tomosynthesis and 2D mammography including computer-aided detection (CAD) when performed. COMPARISON: No relevant prior studies available. FINDINGS: MAMMOGRAPHY: Breast composition: The breasts are heterogeneously dense, which may obscure small masses. Mass: Questioned 0.8 cm mass upper-outer right breast middle depth. Questioned 0.7 cm mass left breast roughly 12 o'clock middle depth. Architectural distortion: None. Calcifications: No suspicious calcifications. Asymmetric density: None. Skin thickening: None. Axillary adenopathy: None. IMPRESSION: Questioned bilateral breast masses. Recommend bilateral diagnostic mammogram including spot compression views of both breasts in the CC and MLO projections, full 90 degree lateral views, and bilateral breast ultrasound for further evaluation ASSESSMENT: BI-RADS Category 0: Incomplete- Need Additional Imaging Evaluation.
--- OUTSIDE RECORDS SUMMARY | 2025-01-23 14:02 | XMS_ITS | Patient Health Record ---
Author Organization [facility] Address [address] [place] [address] Care Team Providers Care Foot Worker Name Role Phone Teri Stern Unavailable [phone] Allergies No Known Allergies Reason For Referral No Information Medications Medication SIG (Take, Route, Frequency, Duration) Notes Start Date End Date Status Omeprazole Active oxycodone Active Simvastatin Active PROPANALOL Active Social History Sex Assigned At : Social History Observation Description Sex Assigned At Female Social History Drugs/Alcohol: Social Info Question Answer Notes Drugs Have you used drugs other than those for medical reasons in the past 12 months? 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
--- OUTSIDE RECORDS SUMMARY | 2025-01-23 14:02 | XMS_ITS | Encounter Summary ---
Author Organization [facility] Address [address] [place] [address] Care Team Providers Care Bag Bundler Name Role Phone Karla Karimi APRN Primary Care Provider +1- [phone] Encounter Details Date Type Department Care Team (Late st Contact Info) Description 01/23/2023 Orders Only External Location [address] [place] [address] Provider, External Social History Tobacco Use Types Packs/Day Years Used Date Smoking Tobacco: Every Day Alcohol Use Standard Drinks/Week Comments Yes 0 (1 standard drink = 0.6 oz pur e alcohol) Comments Unknown Sex and Gender Information Value Date Recorded Sex Assigned at Not on file Legal Sex Female 6:31 PM EDT Gender Identity Not on file Sexual Orientation Not on file documented as of this encounter Plan of Treatment Not on file documented as of this encounter Procedures Procedure Name Priority Date/Time Associated Diagnosis Comments XR MSK OUTSIDE IMAGES 01/23/2023 1:13 PM EDT documented in this encounter Results * XR MSK OUTSIDE IMAGES (01/23/2023 1:13 PM EDT) Anatomical Region Laterality Modality Radiographic Ratna ging 01/23/2023 1:13 PM EDT External Provider IMG XR PROCEDURES Final Result documented in this encounter Visit Diagnoses Not on filedocumented in this encounter Care Teams Bag Bundler Relationship Specialty Start Date End Date Karla Karimi APRN [address] [place] [address] PCP - General 10/09/20 documented as of this encounter
--- OUTSIDE RECORDS SUMMARY | 2025-01-23 14:02 | XMS_ITS | Encounter Summary ---
Author Organization [facility] Address [address] [place] [address] Care Team Providers Care Hotel Recreational Facilities Manager Name Role Phone Karla Karimi APRN Primary Care Provider +1- [phone] Encounter Details Date Type Department Care Team (Late st Contact Info) Description 02/06/2023 Orders Only External Location [address] [place] [address] Provider, External Social History Tobacco Use Types [...] Procedure Name Priority Date/Time Associated Diagnosis Comments MR NEURO OUTSIDE IMAGES 02/06/2023 3:35 PM EDT documented in this encounter Results * MR NEURO OUTSIDE IMAGES (02/06/2023 3:35 PM EDT) Anatomical Region Laterality Modality Magnetic Resonan ce 02/06/2023 3:35 PM EDT us External Provider IMG MRI PROCEDURES Final Resul t documented in this encounter Visit Diagnoses Not on filedocumented in this encounter Care Teams Hotel Recreational Facilities Manager Relationship Specialty Start Date End Date Karla Karimi APRN [address] [place] [id number] PCP - General 10/09/20 documented as of this encounter
--- OUTSIDE RECORDS SUMMARY | 2025-01-23 14:02 | XMS_ITS | Encounter Summary ---
Author Organization [facility] Address [address] [place] [address] Care Team Providers Care Metal Reclamation Kettle Tender Name Role Phone Karla Karimi APRN Primary Care Provider +1- [phone] Encounter Details Date Type Department Care Team (Late st Contact Info) Description 02/02/2023 Orders Only External Location [address] [place] [address] Provider, External Social History Tobacco Use Types [...] Name Priority Date/Time Associated Diagnosis Comments CT NEURO OUTSIDE IMAGES 02/02/2023 1:41 PM EDT documented in this encounter Results * CT NEURO OUTSIDE IMAGES (02/02/2023 1:41 PM EDT) Anatomical Region Laterality Modality Computed Tomogra phy 02/02/2023 1:41 PM EDT us External Provider IMG CT PROCEDURES Final Result documented in this encounter Visit Diagnoses Not on filedocumented in this encounter Care Teams Metal Reclamation Kettle Tender Relationship Specialty Start Date End Date Karla Karimi APRN [address] [place] [address] PCP - General 10/09/20 documented as of this encounter
--- OUTSIDE RECORDS SUMMARY | 2025-01-23 14:02 | XMS_ITS | Clinical Summary ---
Author Organization [facility] Address [address] [place] [address] Care Team Providers Care Auto Adjudication Specialist Name Role Phone Allan Malone DO Primary Care Provider +1 -[phone] Allergies No known active allergies Medications omeprazole (priLOSEC) 40 MG capsule Take 40 mg by mouth Daily. Active propranolol (INDERAL) 60 MG tablet Take 60 mg by mouth Daily. Active methocarbamol (ROBAXIN) 750 MG tablet Take 1 tablet by mouth 3 (Three) Times a Day As Needed for Muscle Spasms for up to 90 doses. 90 tablet 07/06/2020 Active losartan-hydroch lorothiazide (HYZAAR) 100-12.5 MG per tablet Take 1 tablet by mouth Daily. 06/20/2021 Active oxyCODONE-acetam inophen (PERCOCET) 5-325 MG per tablet Take 1 tablet by mouth 2 (Two) Times a Day. 07/31/2021 Active simvastatin (ZOCOR) 10 MG tablet Take 10 mg by mouth Daily. 06/30/2021 Active Active Problems Problem Noted Date Diagnosed Date Cervicalgia 09/13/2021 Cervical radiculopathy at C7 03/09/2020 Overview (03/09/2020): Added automatically from request for surgery [id number] Family History Medical History Relation Name Comments No Known Problems Father Heart disease Mother No Known Problems Sister ADD / ADHD Son Relation Name Status Comments Father Alive Mother Alive Sister Alive Son Alive Social History Tobacco Use Types Packs/Day Years Used Date Smoking Tobacco: Every Day Cigarettes 0.5 15 Smokeless Tobacco: Never Tobacco Cessation:Ready to Q uit: No; Counseling Given: Yes Alcohol Use Standard Drinks/Week Comments Yes 0 (1 standard drink = 0.6 oz pur e alcohol) occasionally Abuse Screen Answer Date Recorded Unsafe at Home or Work/School Not on file Feels Threatened by Someone? Not on file 01/2023 Does Anyone Keep You from Co ntacting Others or Doint Things Outside the Home? Not on file 03/06/2023 Physical Sign of Abuse Present Not on file 1 Housing Stability Answer Date Recorded Current Living Arrangements Not on file 01/2023 Potentially Unsafe Housing Conditions Not on dante e 03/06/2023 Family and Community Support Answer Jason e Recorded Help with Day-to-Day Activities Not on file 03/06/2023 Lonely or Isolated Not on file 03/06/2023 Employment Answer Date Recorded Do you want help finding or keeping work or a amita b? Not on file 03/06/2023 Disabilities Answer Date Recorded Concentrating, Remembering, or Making Decisions Difficulty Not on file 03/06/2023 Doing Errands Independently Difficulty Not on fi le 03/06/2023 Education Answer Date Recorded Help with school or training? Not on file Preferred Language Not on file 03/06/2023 Comments No Sex and Gender Information Value Date Recorded Sex Assigned at Not on file Legal Sex Female 10:25 AM EDT Gender Identity Not on file Sexual Orientation Not on file Last Filed Vital Signs Vital Sign Reading Time Taken Comments Blood Pressure 116/66 09/13/2021 9:16 AM EDT Pulse 56 03/18/2020 11:00 AM EDT Temperature 36.7 C (98 F) 09/13/2021 9:16 AM EDT Respiratory Rate 16 03/18/2020 11:00 AM EDT Oxygen Saturation 95% 03/18/2020 11:00 AM EDT Inhaled Oxygen Concentration - - Weight 74.9 kg (165 lb 3.2 oz) 09/13/2021 9:16 A M EDT Height 170.2 cm (5' 7 ) 09/13/2021 9:16 AM EDT Body Mass Index 25.87 09/13/2021 9:16 AM EDT Plan of Treatment Health Maintenance Due Date Last Done Comments Annual Gynecologic Pelvic an d Breast Exam 1985 Pneumococcal Vaccine 0-49 (1 of 2 - PCV) 02/14/2004 PAP SMEAR 2006 ANNUAL PHYSICAL 11/11/2016 COVID-19 Vaccine (1 - season) 2024 INFLUENZA VACCINE 02/26/2025 TDAP/TD VACCINES (4 - Td or Tdap) 10/05/2032 10/05/2022, 07/05/2012, 03/23/2000 HEPATITIS C SCREENING Completed 04/30/2021 Medical Devices Implanted Type Area Business Manager Device Identifier Shelf Expiration Date Model / Serial / Lot Kt Seal Hemos Abs Floseal Matrx Fast/Prep 10ml - [id number] Implanted:Qty : 1 on 03/18/2020 by Aravind Sosa [facility] at [facility] Implant N/A: Spine Cervical [facility] 06/03/2021 [id number] / / [id number] Hemost Abs Surgifoam Sz100 8x12 10mm - [id number] Implanted:Qty : 1 on 03/18/2020 by Aravind Sosa MD at [facility] Implant N/A: Spine Cervical [employer] 1974 / / Disc Cerv Prestige Lp 6x16mm - [id number] Implanted:Qty : 1 on 03/18/2020 by Aravind Sosa MD at [facility] Implant N/A: Spine Cervical [employer] 12/10/2027 [id number] / / [id number] Procedures Procedure Name Priority Date/Time Associated Diagnosis Comments HEPATITIS C ANTIBODY Routine 04/30/2021 11:31 AM EST Screening examination for venereal disease from Last 3 Months or Most Recently Relevant to Health Maintenance Results * Hepatitis C Antibody (04/30/2021 11:31 AM EST) Hepatitis C Ab Non-Reacti ve Non-Reacti ve 04/30/2021 3:13 PM EST [facility] Blood Venipuncture / Unknown 04/30/2021 11:31 AM EST 04/30/2021 11:31 AM EST Narrative [facility] - 04/30/2021 3:13 PM EST Results may be falsely decreased if patient taking Biotin. Sangeeta Paredes CN LAB BLOOD ORDERABLES Nanci reed Result [facility]
[address] [place] [address], from Last 3 Months or Most Recently Relevant to Health Maintenance Insurance [facility] PPO Care Teams Auto Adjudication Specialist Relationship Specialty Start Date End Date Allan Malone DO [address] [place] [id number] PCP - General Internal Medicine 09/18/23
--- OUTSIDE RECORDS SUMMARY | 2025-01-23 14:02 | XMS_ITS | Encounter Summary ---
Author Organization [facility] Address [address] [place] [address] Care Team Providers Care Stave Log Cut Off Saw Operator Name Role Phone Karla Karimi APRN Primary Care Provider +1- [phone] Encounter Details Date Type Department Care Team ([facility] st Contact Info) Description 05/03/2022 Orders Only External Location [address] [place] [address] Provider, External Social History Tobacco Use Types [...] Associated Diagnosis Comments MR NEURO OUTSIDE IMAGES 05/03/2022 9:21 AM EST documented in this encounter Results * MR NEURO OUTSIDE IMAGES (05/03/2022 9:21 AM EST) Anatomical Region Laterality Modality Magnetic Resonan ce 05/03/2022 9:21 AM EST us External Provider IMG MRI PROCEDURES Final Resul t documented in this encounter Visit Diagnoses Not on filedocumented in this encounter Care Teams Stave Log Cut Off Saw Operator Relationship Specialty Start Date End Date Karla Karimi APRN [address] [place] [id number] PCP - General 10/09/20 documented as of this encounter
--- OUTSIDE RECORDS SUMMARY | 2025-01-23 14:03 | XMS_ITS | Encounter Summary ---
Author Organization Healthcare Address [address] [place] [address] Care Team Providers Care Health Technician Name Role Phone Karla Karimi KEO Primary Care Provider +1- [phone] Encounter Details Date Type Department Care Team (Latest Contact Info) Description 01/15/2025 Travel Social History Tobacco Use Types Packs/Day Years [...] hopeless Not at all 01/15/2025 3:07 PM ASHT Angélica Banks Patient Health Questionnaire -2 Score 0 01/15/2025 3:07 PM ASHT Angélica Banks * Question Answer Date of Assessment Author Trouble falling or staying asleep, or sleeping too much Not at all 01/15/2025 3:07 PM ASHT Angélica Banks Feeling tired or having nathanael le energy Not at all 01/15/2025 3:07 PM EDT Angélica Banks Poor appetite or overeating Not at all 01/15/2025 3: 07 PM EDT Angélica Banks Feeling bad about yourself - or that you are a failure or have let yourself or your family down Not at all 01/15/2025 3:07 PM EDT Angélica Banks Trouble concentrating on things, such as reading the newspaper or watching television Not at all 01/15/2025 3:07 PM EDT Angélica Banks Moving or speaking so slowly [...] all 01/15/2025 3:07 PM EDT Terri Banks T Patient Health Questionnaire -9 Score 0 01/15/2025 3:07 PM EDT Angélica Banks documented as of this encounter Plan of Treatment Not on file documented as of this encounter Visit Diagnoses Not on filedocumented in this encounter Additional Health Concerns Assessment Noted Time PHQ-9 Depression Total Score: 0 01/16/20 3:07 PM EDT A fall risk assessment has been complete d for the patient 01/15/2025 3:08 PM EDT A Body Mass Index follow-up plan has been documented for the patient 08/21/2024 11:31 AM EDT documented as of this encounter Care Teams Health Technician Relationship Specialty Start Date End Date Karla Karimi APRN [address] [place] [address] DolphSHANIKA [id number] PCP - General 10/09/20 documented as of this encounter
--- OUTSIDE RECORDS SUMMARY | 2025-01-23 14:03 | XMS_ITS | Encounter Summary ---
Author Organization [facility] Address [address] [place] [address] Care Team Providers Care Manager Generation Name Role Phone Karla Karimi APRN Primary Care Provider +1- [phone] Encounter Details Date Type Department Care Team ([facility] st Contact Info) Description 05/18/2023 Orders Only External Location [address] [place] [address] Provider, External Social History Tobacco Use Types [...] Associated Diagnosis Comments MR NEURO OUTSIDE IMAGES 05/18/2023 1:07 PM EST documented in this encounter Results * MR NEURO OUTSIDE IMAGES (05/18/2023 1:07 PM EST) Anatomical Region Laterality Modality Magnetic Resonan ce 05/18/2023 1:07 PM EST us External Provider IMG MRI PROCEDURES Final Resul t documented in this encounter Visit Diagnoses Not on filedocumented in this encounter Care Teams Manager Generation Relationship Specialty Start Date End Date Karla Karimi APRN [address] [place] [address] PCP - General 10/09/20 documented as of this encounter
--- OUTSIDE RECORDS SUMMARY | 2025-01-23 14:03 | XMS_ITS | Patient Health Record ---
Author Organization [facility] Address [address] [place] [address] Care Team Providers Care Cloth Trimmer Hand Name Role Phone Carmella Kelvin Unavailable [phone] Reason For Referral No Information Encounters Encounter Location Date Provider Diagnosis [place] [facility] [address] [place] [address] 06/25/2024 Kelvin Weir Plan Of Treatment No Information Insurance Providers Payer Name Payer Address Payer Phone Subscriber Number Group Number Insured Name Patient Relationship to Insured Coverage Start Date Coverage End Date Leana Ghent Cross Blue [facility] [address] [place] [address] Colleen Dawson Self - patient is the insured
--- OUTSIDE RECORDS SUMMARY | 2025-01-23 14:03 | XMS_ITS | Encounter Summary ---
Author Organization [facility] Address [address] [place] [address] Care Team Providers Care Family Program Specialist Name Role Phone Karla Karimi APRN Primary Care Provider +1- [phone] Encounter Details Date Type Department Care Team (Late st Contact Info) Description 01/26/2024 Orders Only External Location [address] [place] [address] Provider, External Social History Tobacco Use Types [...] Name Priority Date/Time Associated Diagnosis Comments XR OUTSIDE IMAGES 01/26/2024 2:00 PM EDT documented in this encounter Results * XR OUTSIDE IMAGES (01/26/2024 2:00 PM EDT) Anatomical Region Laterality Modality Radiographic Ratna ging 01/26/2024 2:00 PM EDT us External Provider IMG XR PROCEDURES Final Result documented in this encounter Visit Diagnoses Not on filedocumented in this encounter Care Teams Family Program Specialist Relationship Specialty Start Date End Date Karla Karimi APRN [address] [place] [address] PCP - General 10/09/20 documented as of this encounter
--- OUTSIDE RECORDS SUMMARY | 2025-01-23 14:03 | XMS_ITS | Referral Summary ---
Author Organization [email or web address] ([place], [place], [place], [place]) Address [address] [place] [address] Care Team Providers Care Finished Cloth Examiner Name Role Phone Unavailable Primary Care Provider Unavailabl e Encounters * This document contains information received from the source organization and may not represent a complete record from that organization. Date Type Department Care Team Description 01/02/2025 Outside [facility] [address] [place] [phone] Nazario Shah MD Long-term current use of opiate analgesic (Primary Dx); Other chronic pain from Last 3 Months Social History Tobacco Use Types Packs/Day Years Used Date Smoking Tobacco: Never Assessed Comments Unknown Sex and Gender Information Value Date Recorded Sex Assigned at Not on file Legal Sex Unknown 01/02/2025 10:34 AM CDT Gender Identity Not on file Sexual Orientation Not on file Plan of Treatment Not on file Insurance BLUE CROSS/BLUE SHIELD
--- OUTSIDE RECORDS SUMMARY | 2025-01-23 14:03 | XMS_ITS | Encounter Summary ---
Author Organization [facility] Address [address] [place] [address] Care Team Providers Care Resort Host Name Role Phone Karla Karimi APRN Primary Care Provider +1- [phone] Encounter Details Date Type Department Care Team (Late st Contact Info) Description 09/12/2023 Orders Only External Location [address] [place] [address] Provider, External Social History Tobacco Use Types [...] Name Priority Date/Time Associated Diagnosis Comments MR THORACIC OUTSIDE IMAGES 09/12/2023 3:31 PM EDT documented in this encounter Results * MR THORACIC OUTSIDE IMAGES (09/12/2023 3:31 PM EDT) Anatomical Region Laterality Modality Magnetic Resonan ce 09/12/2023 3:31 PM EDT us External Provider IMG MRI PROCEDURES Final Resul t documented in this encounter Visit Diagnoses Not on filedocumented in this encounter Care Teams Resort Host Relationship Specialty Start Date End Date Karla Karimi APRN [address] [place] [address] PCP - General 10/09/20 documented as of this encounter
--- OUTSIDE RECORDS SUMMARY | 2025-01-23 14:03 | XMS_ITS | Encounter Summary ---
Author Organization [employer] ([place], [place], [place], [place]) Address [address] [place] [address] Care Team Providers Care Coding Clerks Supervisor Name Role Phone Unavailable Primary Care Provider Unavailabl e Reason for Referral * Consultation (Routine) - Closed Specialty Diagnoses / Procedures Referred By Contpepe t Referred To Contact Psychology / Behavioral Health Diagnoses Long-term current use of opiate analgesic Other chronic pain Nazario Shah MD [address] [place] [address] Phone: tel: fax: Chelsey Casper, [place] [address] [place] [address] Phone: tel: fax: Referral ID Status Reason Start Date Expiration Date V isits Requested Visits Authorized [id number] Closed Specialty Services Required 01/02/2025 01/02/2026 1 1 Encounter Details Date Type Department Care Team (Late st Contact Info) Description 01/02/2025 Outside Orders [facility] Management [address] [place] [phone] Nazario Shah MD [address] [place] [address] Long-term current use of opiate analgesic (Primary Dx); Other chronic pain Social History Tobacco Use Types Packs/Day Years Used Date Smoking Tobacco: Never Assessed Comments Unknown Sex and Gender Information Value Date Recorded Sex Assigned at Not on file Legal Sex Unknown 01/02/2025 10:34 AM CDT Gender Identity Not on file Sexual Orientation Not on file documented as of this encounter Plan of Treatment Scheduled Referrals Name Type Priority Associated Diagnoses Order Schedule Ambulatory referral to Psychology Outpatient Referral Routine Long-term current use of opiate analgesic Other chronic pain Expected: 01/02/2025, Expires: 01/02/2026 documented as of this encounter Visit Diagnoses Diagnosis Long-term current use of opiate analgesic- Primary Encounter for long-term (current) use of other medications Other chronic pain documented in this encounter
--- OUTSIDE RECORDS SUMMARY | 2025-01-23 14:03 | XMS_ITS | Encounter Summary ---
Author Organization [facility] Address [address] [place] [address] Care Team Providers Care Gelatin Dynamite Packing Operator Name Role Phone Karla Karimi APRN Primary Care Provider +1- [phone] Encounter Details Date Type Department Care Team (Late st Contact Info) Description 09/07/2021 Orders Only External Location [address] [place] [address] Provider, External Social History Tobacco Use Types [...] Associated Diagnosis Comments MR NEURO OUTSIDE IMAGES 09/07/2021 12:58 PM EDT documented in this encounter Results * MR NEURO OUTSIDE IMAGES (09/07/2021 12:58 PM EDT) Anatomical Region Laterality Modality Magnetic Resonan ce 09/07/2021 12:5 8 PM EDT us External Provider IMG MRI PROCEDURES Final Resul t documented in this encounter Visit Diagnoses Not on filedocumented in this encounter Care Teams Gelatin Dynamite Packing Operator Relationship Specialty Start Date End Date Karla Karimi APRN [address] [place] [id number] PCP - General 10/09/20 documented as of this encounter
--- OUTSIDE RECORDS SUMMARY | 2025-01-23 14:03 | XMS_ITS | Clinical Summary ---
Author Organization [employer] ([place], [place], [place], [place]) Address [address] [place] [address] Care Team Providers Care Ingredient Specialist Name Role Phone Unavailable Primary Care Provider Unavailabl e Encounters * This document contains information received from the source organization and may not represent a complete record from that organization. Date Type Department Care Team Description 01/02/2025 Outside [facility] Pain Management [address] [place] [phone] Nazario Shah MD Long-term current use [...] Orientation Not on file Plan of Treatment Health Maintenance Due Date Last Done Comments Depression Screening (12+) 1997 Tobacco Cessation Counseling and Screening (12+) 1997 HIV Screening 02/14/2000 Hepatitis C Screening 2003 COVID-19 VACCINE (2023-2 5 season) 2024 Influenza Vaccine (#1) 2025 DTAP/TDAP/TD VACCINES (4 - T d or Tdap) 10/05/2032 10/05/2022, 07/05/2012, 03/23/2000 Pneumococcal Vaccine: 0-49 Years Aged Out No longer eligible b ased on patient's age to complete this topic Insurance BLUE CROSS/BLUE SHIELD
--- OUTSIDE RECORDS SUMMARY | 2025-01-23 14:04 | XMS_ITS | Clinical Summary ---
Author Organization [facility] Address [address] [place] [address] Care Team Providers Care Notched Blade Loader Name Role Phone Karla Karimi APRN Primary Care Provider +1- [phone] Allergies No known active allergies Medications propranolol LA (Inderal LA) 60 MG 24 hr capsule 0 Active oxyCODONE (Roxicodone) 10 MG immediate release tablet 5 Active meloxicam (Mobic) 15 MG tablet Take 1 tablet by mouth daily. Active nystatin (Mycostatin) 770084 UNIT/ML suspension Take 5 mL by mouth in the morning and 5 mL at noon and 5 mL in the evening and 5 mL before bedtime. Swish in mouth and spit out. 280 mL 5 Active Additional Information Patient not taking.Reported on 01/15/2025 Multiple Vitamins-Minera ls (Hair Skin and Nails Formula) tablet Take by mouth every other day. Active Active Problems Problem Noted Date Diagnosed Date Dysphonia 08/21/2024 Throat pain 08/21/2024 Tobacco use disorder 08/20/2024 Encounters Date Type Department Care Team Description 01/15/2025 3:00 PM EDT Office Visit [facility] [address] [place] [phone] Koby Juarez PA Bad headache (Primary Dx); Throat pain 01/15/2025 1:04 PM EDT - 01/15/2025 11:59 PM EDT Hospital Encounter [facility] [address] [place] [address] Throat pain Discharge Disposition: Home or Self Care 01/15/2025 Travel from Last 3 Months Family History Medical History Relation Name Comments Diabetes Other 1 Other cancer Other 2 Heart attack Other 3 Relation Name Status Comments Other 1 Other 2 Other 3 Social History Tobacco Use Types Packs/Day Years [...] Mass Index 25.01 01/15/2025 3:03 PM EDT Plan of Treatment Health Maintenance Due Date Last Done Comments [facility]-HIV Screening 1985 [facility]-/Child/Adol SDOH Screenings 1985 [facility]-Varicella Vaccines (1 of 2 - 13+ 2-dose series) 1998 [facility]- SDOH Screenings 2003 [facility]-Adult SDOH Screenings 2003 [facility]-Pneumococcal Vaccine: Pediatrics (0 to 5 Years) and At-Risk Patients (6 to 49 Years) (1 of 2 - PCV) 02/14/2004 [facility]-Pap Smear 2006 HPV Vaccines (1 - 3-dose SCD M series) 02/14/2012 [facility]-Cervical Cancer Screening 2015 [facility]-HPV/Cotest 2015 [id number] Vaccine ( season) 2024 [facility]-Influenza Vaccine (#1) 2025 [facility]-Depression Screening 01/15/2026 025, 01/15/2025 [facility]-DTaP,Tdap,and Td Vaccine s (4 - Td or Tdap) 10/05/2032 10/05/2022, 07/05/2012, 03/23/2000 [facility]-Zoster Vaccines (1 of 2) 2035 [facility]-Hepatitis B Vaccines Completed 997, 02/05/1996, 01/02/1996 [facility]-Hepatitis C Screening Completed 04/30/2021 [facility]-Obesity Intervention Completed 08/20/2024 [facility]-HIB Vaccines Aged Out No longer e ligible based on patient's age to complete this topic [facility]-Hepatitis A Vaccines Aged Out No longer eligible based on patient's age to complete this topic [facility]-IPV Vaccines Aged Out No longer e ligible based on patient's age to complete this topic [facility]-Rotavirus Vaccines Aged Out No lo nger eligible based on patient's age to complete this topic Procedures Procedure Name Priority Date/Time Associated Diagnosis Comments CT SOFT TISSUE NECK W IV CONTRAST Routine 01/15/2025 1:46 PM EDT Throat pain from Last 3 Months Results * CT Soft Tissue Neck w [...] signing this report, I, the attending physician, attchristhat I have personally reviewed the images/data for the aboveexamination(s) and agree with the final edited report. Drafted by Armando Ho M.D. on 01/15/2025 6:46 PM Final report signed by Pardeep Rosales MD on 01/16/2025 7:54 AM Koby MATHUR IMG CT PROCEDURES Final Result from Last 3 Months Insurance [facility] Care Teams Notched Blade Loader Relationship Specialty Start Date End Date Karla Karimi APRN [address] [place] [address] PCP - General 10/09/20
== END 2025-01-23 23:59 | disposition home or self-care (01) ==
LOC: RAD 13:55
PROVIDERS: PCP Nurse Practitioner Family; Visit Provider Nurse Practitioner Family
DX: Z12.31 Encounter for screening mammogram for malignant neoplasm of breast (principal); R92.333 Mammographic heterogeneous density, bilateral breasts
CPT/HCPCS: 77063; 77067